=== PATIENT | male | born 1930 | race Caucasian/White ===

== ENCOUNTER 2016-10-24 20:46 | Inpatient (IN) | payer MEDICARE ==
--- NOTE | 2016-10-24 21:29 | ED ---
Josefina Cameron Rebecca, scribed for Jerry Shen MD on 10/24/16 at 2124 . Shortness of Breath - HPI Summary HPI Summary: Pt is an 85 y/o M BIBA who presents to ED c/o SOB. SOB began gradually 10 days ago and is slightly worse today than it has been previously. SOB characterized as mild dyspnea at exertion. Sx aggravated by exertion, alleviated by nothing. Denies any CP. Reports he does not typically use O2 per Os at home. - History of Current Complaint Chief Complaint: EDShortnessOfBreath Time Seen by Provider: 10/24/16 20:56 Hx Obtained From: Patient Onset/Duration: Gradual Onset, Lasting Days - 10 days, Still Present Timing: Constant Dyspnea At: Exertion Aggrevating Factors: Movement Alleviating Factors: Nothing Associated Signs & Symptoms: Negative - Allergy/Home Medications Allergies/Adverse Reactions: Allergies Allergy/AdvReac Type Severity Reaction Status Date / Time No Known Allergies Allergy Verified 07/15/14 15:44 Home Medications: Home Medications Albuterol 0.5% CONC NEB.ABEL* 1 ml .SEE ORDER Q4HR PRN 10/24/16 [History Confirmed 10/24/16] Cholecalciferol [Vitamin D] 1,000 unit PO DAILY 10/24/16 [History Confirmed ] Diltiazem CD CAP* [Cardizem CD CAP*] 240 mg PO DAILY 10/24/16 [History Confirmed 10/24/16] Fluticasone-Salmeterol 100-50* [Advair Diskus 100-50*] 1 puff INH BID 10/24/16 [ History Confirmed 10/24/16] Psyllium KESHIA* [Metamucil KESHIA*] 1 pkt PO DAILY 10/24/16 [History Confirmed ] PMH/Surg Hx/FS Hx/Imm Hx Endocrine/Hematology History: Denies: Hx Diabetes Cardiovascular History: Reports: Hx Hypertension Denies: Hx Angina Respiratory History: Denies: Hx Asthma, Hx Chronic Obstructive Pulmonary Disease (COPD) Comment Only: Other Respiratory Problems/Disorders - pt states wheezes occasionally Sensory History: Reports: Hx Contacts or Glasses Opthamlomology History: Reports: Hx Contacts or Glasses Infectious Disease History: No Infectious Disease History: Denies: Traveled Outside the [place] in Last 30 Days - Family History Known Family History: Negative: Cardiac Disease, Hypertension, Diabetes - Social History Alcohol Use: Daily Alcohol Amount: 3 MIXED DRINKS PER DAY Substance Use Type: Reports: None Hx Tobacco Use: No Smoking Status (MU): Never Smoked Tobacco Review of Systems Negative: Chest Pain Positive: Shortness Of Breath - dyspnea at exertion All Other Systems Reviewed And Are Negative: Yes Physical Exam Triage Information Reviewed: Yes Vital Signs On Initial Exam: Initial Vitals Temp Pulse Resp BP Pulse Ox 98.4 F 82 20 130/65 100 10/24/16 20:56 10/24/16 20:56 10/24/16 20:56 10/24/16 20:56 10/24/16 20:56 Vital Signs Reviewed: Yes Appearance: Positive: Well-Appearing, No Pain Distress Skin: Positive: Warm, Pale Eyes: Positive: IRASEMA ENT: Positive: Hearing grossly normal Neck: Positive: Supple Respiratory/Lung Sounds: Positive: Clear to Auscultation, Breath Sounds Present Cardiovascular: Positive: RRR Abdomen Description: Positive: Nontender, Soft Bowel Sounds: Positive: Present Musculoskeletal: Positive: Strength/ROM Intact Neurological: Positive: Sensory/Motor Intact, Alert, Oriented to Person Place, Time, Normal Gait Psychiatric: Positive: Affect/Mood Appropriate - Vic[place] Coma Scale Coma Scale Total: 15 Diagnostics - Vital Signs Vital Signs Temp Pulse Resp BP Pulse Ox 10/24/16 20:56 98.4 F 82 20 130/65 100 - Laboratory Result Diagrams: 10/25/16 03:05 10/24/16 21:30 Lab Statement: Any lab studies that have been ordered have been reviewed, and results considered in the medical decision making process. - Radiology CXR Radiology Interpretation Completed By: Radiologist - Cardiomegaly. Left pleural effusion is noted. Likely small right pleural effusion is noted. - EKG 2203 Cardiac Rate: NL - 87 bpm EKG Rhythm: Atrial Fibrillation EKG Interpretation: RBBB Re-Evaluation - Re-Evaluation First Eval Comment: results d/w pt. pt with dark stools for 1 month Course/Dx - Course Assessment/Plan: Pt is an 85 y/o M BIBA with a CC of mild dyspnea at exertion for 10 days, aggravated by exertion. Denies any CP. Hgb 5.8. BNP 126. CXR reveals "Cardiomegaly. Left pleural effusion is noted. Likely small right pleural effusion is noted." EKG reveals A fib and RBBB. Discussed care of pt with Dr. Contreras to inform him of pt. - Diagnoses Provider Diagnoses: GI bleed - Physician Notifications Discussed Care of Patient With: Dr. Contreras, hopsitalist, who was informed of pt. Time Discussed With Above Provider: 22:00 Instructed by Provider To: Admit As Inpatient Discharge - Discharge Plan Condition: Guarded Disposition: ADMITTED TO [facility] The documentation as recorded by the Josefina powell Rebecca accurately reflects the service I personally performed and the decisions made by me, Jerry Shen MD.
[2016-10-24 21:49] LABS: Hematocrit 19 % (42-52); Mean Corpuscular HGB Conc 31 g/dl (31-36); Mean Corpuscular Hemoglobin 25 pg (27-31); Mean Corpuscular Volume 82 fL (80-94); Mean Platelet Volume 7 um3 (7.4-10.4); Red Cell Distribution Width 22 % (10.5-15); White Blood Count 8.1 10^3/ul (3.5-10.8)
[2016-10-24 21:51] LABS: Comments Flag Yes
[2016-10-24 21:52] LABS: Add Diff/Slide Review? Slide Review Added; Hemoglobin 5.8 g/dl (14.0-18.0)
[2016-10-24 21:59] LABS: Albumin 3.6 g/dL (3.2-5.2); BUN/Creatinine Ratio 14.5 (8-20); Calcium 8.8 mg/dL (8.6-10.3); EGFR African American 75.8 (>60); Globulin 2.5 g/dL (2-4); Potassium 3.9 mmol/L (3.5-5.0); Total Bilirubin 0.4 mg/dL (0.2-1.0); Total Protein 6.1 g/dL (6.4-8.9)
[2016-10-24 22:00] LABS: Troponin I 0.02 ng/mL (<0.04)
--- NOTE | 2016-10-24 22:07 | RAD ---
Indication: Shortness of breath. 2 views of the chest demonstrates no mediastinal shift. There is cardiomegaly. Left pleural effusion is noted. There is likely a small right pleural effusion. Interstitial edema is noted. IMPRESSION: Cardiomegaly. Left pleural effusion is noted. Likely small right pleural effusion is noted.
[2016-10-24 22:23] LABS: Hypochromasia 3+; Macrocytosis 1+; Microcytosis 1+; Polychromasia 1+
[2016-10-24] MEDS: NS 0.9% 1000 ML* 1,000 ML IV SCH (23:25)
[2016-10-25] MEDS: Pantoprazole IV* 80 MG in NS 0.9% 250 ML* 250 ML IVPB SCH ×2 (01:47→12:27)
[2016-10-25] MEDS: NS 0.9% 1000 ML* 1,000 ML IV SCH ×2 (01:57→11:00)
[2016-10-25 02:55] LABS: Comments Flag Yes; Hematocrit 16 % (42-52)
[2016-10-25 02:56] LABS: Hemoglobin 4.9 g/dl (14.0-18.0)
[2016-10-25 03:36] LABS: Comments Flag Yes; Hematocrit 19 % (42-52)
[2016-10-25 03:39] LABS: Hemoglobin 5.9 g/dl (14.0-18.0)
--- NOTE | 2016-10-25 08:45 | HP ---
DATE OF ADMISSION: 10/24/16 CHIEF COMPLAINT: Shortness of breath. HISTORY OF PRESENT ILLNESS: The patient is an 85-year-old gentleman who stated about 10 days ago he started feeling increased shortness of breath. He is not worse when he sits or lies down, but it happens with almost minimal exertion. He has no chest pain. His stools have been darker and may have been black. He has not had any recent use of Advil or Motrin. He has had no nausea, vomiting and no abdominal pain. He went to a restaurant [employer] and his friend became concerned, and called EMT. When he got to the ER, he was found to have hemoglobin of 5.8. PAST MEDICAL HISTORY: He has a past medical history significant for atrial fibrillation, diverticulitis, hip fracture, sleep apnea. ALLERGIES: He has no known drug allergies. CURRENT MEDICATIONS: 1. Metamucil one pack daily. 2. Phosphatidylserine 300 mg daily 3. Furosemide 20 mg p.o. 2 to 3 times a week. 4. Advair Diskus 100/50 one puff twice daily 5. Diltiazem CD 240 mg daily. 6. Pradaxa 150 mg twice daily. 7. Cholecalciferol 1000 units daily. 8. Albuterol 1 cc every 4 hours as needed. FAMILY HISTORY: Reviewed and noncontributory. SOCIAL HISTORY: No tobacco, occasional alcohol. No recreational drug use. 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 His friend, Sam Israel, , is his healthcare proxy. REVIEW OF SYSTEMS: A 14-point review of systems was completed with the patient. All pertinent positives and negatives are in the history of present illness, otherwise negative. PHYSICAL EXAMINATION GENERAL: A pleasant gentleman lying in bed, in no acute distress. VITAL SIGNS: Temperature 98.8 degrees, heart rate 96 beats per minute, respiratory rate 21 breaths per minute, pulse ox 96%, blood pressure 126/67. HEENT: Normocephalic, atraumatic. Pupils are equal, round and reactive to light. Moist mucous membranes. NECK: Supple. No JVD, bruits, palpable thyroid, or lymphadenopathy. CHEST: Clear to auscultation and percussion bilaterally. CARDIOVASCULAR: S1, S2 appreciated. ABDOMEN: Positive bowel sounds in all 4 quadrants. Soft, nontender, and nondistended. EXTREMITIES: No cyanosis, clubbing, or edema. +2 peripheral pulses bilaterally. NEURO: Alert and oriented x3. Moves all extremities. SKIN: No rashes or abnormalities. LAB DATA: White count 8.1, hemoglobin 5.8, hematocrit 19, platelets 312, MCV 82. Sodium 134, potassium 3.9, chloride 104, CO2 24, BUN 17, creatinine 1.7, glucose 101, lactic acid 2.1. Chest x-ray shows cardiomegaly, left pleural fusion is noted, likely small right pleural fusion. EKG shows AFib with a moderate ventricular response, no acute ST-T wave changes. ASSESSMENT AND PLAN: 1. Shortness of breath. I believe this is likely related to his anemia. His MCV is not too low, but I suspect he might have had a bleed over the last couple of weeks. I will transfuse him 2 units of packed red blood cells. Recheck H\T\H every 6 hours. We will ask GI to see him in the morning for scope. 2. Atrial fibrillation. We will need to hold Pradaxa. Rate is adequately controlled at this time. 3. FEN. NPO, awaiting likely scope. 4. DVT prophylaxis. Sequential compression stockings. 5. The patient is a full code. TIME SPENT: Over 75 minutes were spent on this H and P, more than 40 minutes of which were spent in direct [id number] contact with the patient in evaluation, physical exam, counseling, and coordination of care. CC: Dr. Josette Brunner* [id number]/CPS #: [id number] MTDD
[2016-10-25 09:13] LABS: Hematocrit 23 % (42-52); Hemoglobin 7.2 g/dl (14.0-18.0)
[2016-10-25] MEDS ORDERED: Pantoprazole IV* 40 MG ONE (12:21)
[2016-10-25] MEDS ORDERED: Midazolam* 1 MG/ML 10 ML VIAL (10 MG) ONE (13:37)
[2016-10-25] MEDS ORDERED: fentaNYL* 50 MCG/ML 2 ML VIAL (100 MCG VIAL) ONE (13:37)
[2016-10-25 16:01] LABS: Hematocrit 22 % (42-52); Hemoglobin 6.8 g/dl (14.0-18.0)
[2016-10-25 16:02] LABS: Comments Flag Yes
--- NOTE | 2016-10-25 18:36 | PN ---
Subjective Date of Service: 10/25/16 Interval History: Pt seen and examined with 2 friends present after EGD Hungry and just finished meal Has no abdominal pain No longer feels LH, no CP, SOB. Has not been up to walk Objective Active Medications: Mometasone Furoate/Formoterol Fumar (Dulera 100/5 Mdi*) 2 puff INH BID BRIAN Omeprazole (Prilosec Cap*) 20 mg PO BID BRIAN Vital Signs 10/24/16 10/24/16 10/24/16 23:06 23:30 23:38 Temperature 98.8 F Pulse Rate 85 96 Respiratory 22 22 Rate Blood Pressure 130/65 126/67 (mmHg) O2 Sat by Pulse 97 95 Oximetry 10/24/16 10/25/16 10/25/16 23:45 00:00 00:01 Temperature Pulse Rate 90 85 95 Respiratory 21 23 22 Rate Blood Pressure 130/66 130/81 (mmHg) O2 Sat by Pulse 96 96 96 Oximetry 10/25/16 10/25/16 10/25/16 00:08 00:15 01:20 Temperature 98.4 F 98.1 F Pulse Rate 95 111 99 Respiratory 22 18 20 Rate Blood Pressure 121/56 133/86 (mmHg) O2 Sat by Pulse 95 100 Oximetry 10/25/16 10/25/16 10/25/16 02:43 03:13 03:57 Temperature 98.5 F 98.4 F Pulse Rate 106 74 Respiratory 18 16 20 Rate Blood Pressure 122/68 109/65 (mmHg) O2 Sat by Pulse 94 Oximetry 10/25/16 10/25/16 10/25/16 04:12 07:15 08:00 Temperature 98.2 F 98.2 F Pulse Rate 84 101 Respiratory 21 20 16 Rate Blood Pressure 119/59 126/68 (mmHg) O2 Sat by Pulse 96 Oximetry 10/25/16 10/25/16 11:10 15:34 Temperature 98.5 F 98.1 F Pulse Rate 85 97 Respiratory 20 20 Rate Blood Pressure 121/71 127/70 (mmHg) O2 Sat by Pulse 97 96 Oximetry Oxygen Devices in Use Now: None Appearance: NAD, younger than stated age Eyes: No Scleral Icterus, PERRLA Ears/Nose/Mouth/Throat: Clear Oropharnyx, Mucous Membranes Moist Neck: NL Appearance and Movements; NL JVP, Trachea Midline Respiratory: Symmetrical Chest Expansion and Respiratory Effort, Clear to Auscultation Cardiovascular: - - IRIR Abdominal: NL Sounds; No Tenderness; No Distention, No Hepatosplenomegaly Lymphatic: No Cervical Adenopathy Extremities: - - trace-1+ edema Skin: No Rash or Ulcers Neurological: Alert and Oriented x 3 Result Diagrams: 10/25/16 15:56 10/24/16 21:30 Assess/Plan/Problems-Billing Assessment: 85 yo M p/w increasing SOB found with anemia s/p EGD 10/25 found with esophageal erosions. - Patient Problems (1) Acute blood loss anemia Comment: s/p 2 units PRBC, 3rd this evening for Hb <7 Suspected in setting of esophageal erosion on pradaxa holding pradaxa repeat H/H 1 hr after transfusion and again in AM (2) Afib Comment: Holding pradaxa discussed risk benefit with pt and he is in agreement with not restarting AC at this time (3) Esophageal erosions Comment: Concern for pill esophagitis. Pt does report dry mouth and difficulty swallowing tabs (vs caps) although does not have medications he is currently taking in tab form Start omeprazole (4) Sleep apnea Comment: CPAP (5) DVT prophylaxis Comment: SCDs in setting of GIB
[2016-10-25] MEDS: Mometasone/Formoter 100/5 MDI INH SCH (21:15)
[2016-10-25] MEDS: Omeprazole CAP* 20 MG PO SCH (21:32)
[2016-10-25] MEDS ORDERED: Pantoprazole IV* 80 MG in NS 0.9% 250 ML* 250 ML IVPB SCH (22:00)
[2016-10-25 23:59] LABS: Hematocrit 26 % (42-52); Hemoglobin 8.2 g/dl (14.0-18.0)
--- NOTE | 2016-10-26 04:38 | PRO ---
PROCEDURE NOTE: DATE OF PROCEDURE: 10/25/16 PROCEDURE PERFORMED: Upper endoscopy. MEDICINE: Versed 4 mg IV. NARRATIVE: This is an 85-year-old gentleman presenting with anemia and the report of having black stools for about a week to two. The patient does have a history of atrial fibrillation, on Pradaxa and was starting to feel short of breath the last few days. He also mentions that his stools have been black. For that reason, he was seen in the emergency room where he was noted to be anemic with a hemoglobin of about 5. He was transfused and is feeling better. For this reason, upper endoscopy is being carried out. DESCRIPTION OF PROCEDURE: After the procedure was discussed with the patient, risks and benefits were outlined, written consent was obtained. The patient was placed in the left lateral decubitus position and conscious sedation was administered. A video diagnostic gastroscope was inserted orally and advanced very carefully into the esophagus. The esophagus, stomach, and duodenum to the second to third portion were well visualized. The patient tolerated the procedure well. There were no immediate complications. FINDINGS: The proximal esophagus was normal. However, the mid esophagus had some scattered erosions that were relatively deep, but not bleeding. The more distal aspect of the esophagus was normal without any further erosions or any other lesion. The stomach was entered. There was bile in the stomach, but certainly no blood. The gastric mucosa was normal. There was no ulceration or inflammatory change. The pylorus was normal and patent. The duodenal bulb was normal and the second to third portion of the duodenum was normal with a normal folding pattern. CONCLUSION: Erosions identified in the mid esophagus which may have accounted for the patient's bleeding and otherwise normal upper endoscopy. RECOMMENDATIONS: The location of these erosions makes one wonder about a previous episode of pill esophagitis as it seems that this is right above the pb, a common place where pills could get caught. In any event, I think it is healing and given his improvement in his H and H and no further bleeding, he could probably be observed. If Pradaxa is necessary, that can probably be started in the next couple of days. I will certainly keep him on a proton pump inhibitor for at least a month or two. [id number]/[facility] #: [id number] [facility] SHOREChristiane
[2016-10-26] MEDS: Omeprazole CAP* 20 MG PO SCH (09:00)
[2016-10-26] MEDS: Mometasone/Formoter 100/5 MDI INH SCH (13:19)
[2016-10-26 13:33] VITALS: BP 146/76
[2016-10-26 14:59] LABS: Hematocrit 26 % (42-52); Hemoglobin 8.2 g/dl (14.0-18.0); Mean Corpuscular HGB Conc 32 g/dl (31-36); Mean Corpuscular Hemoglobin 26 pg (27-31); Mean Corpuscular Volume 83 fL (80-94); Mean Platelet Volume 7 um3 (7.4-10.4); Red Blood Count 3.13 10^6/ul (4.0-5.4); Red Cell Distribution Width 19 % (10.5-15); White Blood Count 10.2 10^3/ul (3.5-10.8)
--- NOTE | 2016-10-27 02:37 | DS ---
DISCHARGE SUMMARY: DATE OF ADMISSION: 10/24/16 DATE OF DISCHARGE: 10/26/16 PRIMARY CARE PROVIDER: Laurel Angulo. PRIMARY DIAGNOSIS: Gastrointestinal hemorrhage in the setting of esophageal erosions. SECONDARY DIAGNOSES: Include: 1. Atrial fibrillation, on Pradaxa. 2. Sleep apnea. MEDICATIONS ON DISCHARGE: Include: 1. Metamucil 1 packet daily. 2. Phosphatidylserine 300 mg daily 3. Lasix 20 mg 2 to 3 times weekly. 4. Advair 100/50 mcg 1 puff twice daily. 5. Diltiazem CD 250 mg daily. 6. Vitamin D 1000 units daily. 7. Albuterol nebulizer 4 times a day as needed for shortness of breath. 8. Prilosec 20 mg twice daily. 9. Ferrous sulfate liquid 220 mg daily. PERTINENT LABORATORY DATA: Hemoglobin on presentation 4.9, on discharge 8.2 after receiving of 3 units packed red blood cells. PROCEDURES PERFORMED DURING HOSPITAL STAY: Upper endoscopy performed by Dr. Briscoe on 10/25/16, conclusion: Erosions identified in the mid esophagus, may have accounted for the patient's bleeding and otherwise normal upper endoscopy. HISTORY OF PRESENT ILLNESS AND HOSPITAL COURSE: This is an 85-year-old well functioning man who has been in usual state of health until prior to admission about 10 days, started to having increasing shortness of breath. He was directed to the emergency room by one of his friends. Additionally, he had noticed that his stools had been darker brown and possibly black prior to presentation. His hemoglobin on presentation was notably 4.9 as indicated above likely accounting for the patient's symptoms including shortness of breath. He received 2 units of packed red blood cells with adequate response to hemoglobin of 7.2. He had endoscopy with resulted as indicated above notable for mid esophagus esophageal erosions, this was concerning for pill esophagitis. In discussion with the patient, he does acknowledge that swallowing tab is difficult for him; however, does not have any medications in tablet form. He was directed to crush any tablets that he should receive in the future. Additionally, omeprazole 20 mg twice daily was added to the patient 's medication list in addition to iron in order to supplement his return to normal hematocrit. There are no complications during the patient's hospital stay. He will be restarted on all of his home medications except for Pradaxa. The risks and benefits withholding Pradaxa were discussed with the patient. We agreed that holding for at least several weeks would be in his best interest in the setting of recent GI hemorrhage and known esophageal erosions. At followup, please; 1. Evaluate for resumption of Pradaxa. 2. Recommend following hemoglobin and hematocrit closely, possibly every 6 weeks to monitor for slow development of anemia. If the patient has recurrent anemia, he may benefit from colonoscopy. 3. No other specific labs or vitals that need followup. Reasons to return to the hospital including but not limited to recurrent or worsening symptoms, including shortness of breath, chest pain, lightheadedness, loss of consciousness or near loss of consciousness, or dark black stools or bleeding from any source were discussed with the patient. He acknowledged understanding. TIME SPENT: Greater than 45 minutes was spent on discharge of this patient with greater than half the time spent [id number] with the patient. CC: Dr. Scarlet Chopra* [id number]/CPS #: [id number] FRANCOISE
== END 2016-10-26 17:15 | disposition home or self-care (01) | DRG 381 ==
LOC: ED 20:46 → MEDTELE 22:42 → UNDOADMIN 23:10 → MEDTELE 23:10 → MED 10-25 19:20
PROVIDERS: ADMIT Internal Medicine; ATTEND Internal Medicine
PROC: 30233N1 Transfusion of Nonautologous Red Blood Cells into Peripheral Vein, Percutaneous Approach (ICD-10-PCS; principal; 2016-10-25)
PROC: 0DJ08ZZ Inspection of Upper Intestinal Tract, Via Natural or Artificial Opening Endoscopic (ICD-10-PCS; 2016-10-25)
DX: K22.11 Ulcer of esophagus with bleeding (principal); D62 Acute posthemorrhagic anemia; I48.91 Unspecified atrial fibrillation; G47.30 Sleep apnea, unspecified; I10 Essential (primary) hypertension; Z72.89 Other problems related to lifestyle
CPT/HCPCS: 36415; 71020; 80053; 82272; 83605; 83880; 84484; 85014; 85018; 85025; 85027; 86850; 86900; 86901; 86922; 93005; 94660; 94760; A9270-GY; J2250; J3010; P9040

== ENCOUNTER 2018-04-23 20:55 | Emergency (ER) | payer MEDICARE ==
--- OUTSIDE RECORDS SUMMARY | 2018-04-23 21:09 | XMS REPORT | Continuity of Care Document ---
:1930 Author Organization [facility] Care Team Providers Name Role Phone MUNIRA COFFEY Primary Care Physician Allergies and Intolerances No Known Allergies Medications RxNorm Medication Dose Route Instructions Start End Date Status Date 2418 Cholecalciferol 2000 unit oral orally every day Active 1314666 dabigatran etexilate 150 mg oral orally 2 times per Active 150 MG Oral Capsule day (administer at approximately same time(s) each day) Diltiazem Oral 24 hr 240 mg oral orally every day Active Cap Doxycycline Hyclate 100 mg oral orally 2 times per Active Oral day (5 days) 992173 Furosemide 20 MG 20 mg oral orally every day Active Oral Tablet 360166 Levofloxacin 500 MG 500 mg oral orally every day Active Oral Tablet (5 days) 884760 Memantine 5 mg oral orally 2 times per Active hydrochloride 5 MG day Oral Tablet 7646 Omeprazole 20 mg oral orally every day Active Problems Code Code System Problem Name Start Date End Date Status 57758152 SNOMED-CT Pneumothorax Active Procedures No data in the system Results No data in the system Social History Code Code System Social History Description Dates Observed Observation 036165280 SNOMED CT Current Smoking Unknown if ever Status smoked UNK AdministrativeGender Sex Assigned At Unknown Vital Signs No data in the system Goals Section No data in the system Health Concerns No data in the systemEncounter Diagnosis Date Code Code System Diagnosis Status R04.2 ICD10 HEMOPTYSIS Active Advance Directives PT STATES NO ADVANCE DIRECTIVES Directive Type Effective Date 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 Supporting Document Name Address Phone No Directive Type 01/25/2018 8:31:00 Not Specified Not Specified Not Specified None No specified PM *RHIO - CONSENT IS YES Directive Type Effective Date 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 Supporting Document Name Address Phone No Directive Type 09/29/2011 Not Specified Not Specified Not Specified None No specified 10:01:04 PM Family History No data in the system Functional Status No data in the system Immunizations No data in the system Medical Equipment No data in the system Mental Status No data in the system Assessment and Plan Assessments No data in the systemPlan Of Treatment No data in the systemPending Tests No data in the system Hospital Discharge Instructions No data in the system Reason for Visit No data in the system
--- OUTSIDE RECORDS SUMMARY | 2018-04-23 21:09 | XMS REPORT | Continuity of Care Document ---
:1930 Author Organization [facility] Care Team Providers Name Role Phone MUNIRA COFFEY Primary Care Physician Allergies and Intolerances No Known Allergies Medications RxNorm Medication Dose Route Instructions Start End Date Status Date 2418 Cholecalciferol 2000 unit oral orally every day Active 4218170 dabigatran etexilate 150 mg oral orally 2 times per Active 150 MG Oral Capsule day (administer at approximately same time(s) each day) Diltiazem Oral 24 hr 240 mg oral orally every day Active Cap Doxycycline Hyclate 100 mg oral orally 2 times per Active Oral day (5 days) 913351 Furosemide 20 MG 20 mg oral orally every day Active Oral Tablet 809184 Levofloxacin 500 MG 500 mg oral orally every day Active Oral Tablet (5 days) 250153 Memantine 5 mg oral orally 2 times per Active hydrochloride 5 MG day Oral Tablet 7646 Omeprazole 20 mg oral orally every day Active Problems Code Code System Problem Name Start Date End Date Status 64184216 SNOMED-CT Pneumothorax Active Procedures No data in the system Results No data in the system Social History Code Code System Social History Description Dates Observed Observation 260215356 SNOMED CT Current Smoking Unknown if ever Status smoked UNK AdministrativeGender Sex Assigned At Unknown Vital Signs No data in the system Goals Section No data in the system Health Concerns No data in the systemEncounter Diagnosis Date Code Code System Diagnosis Status R04.2 ICD10 HEMOPTYSIS Active Advance Directives PT STATES NO ADVANCE DIRECTIVES Directive Type Effective Date 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
--- OUTSIDE RECORDS SUMMARY | 2018-04-23 21:09 | XMS REPORT | Continuity of Care Document ---
:1930 Author Organization [facility] Care Team Providers Name Role Phone MUNIRA COFFEY Primary Care Physician Allergies and Intolerances No Known Allergies Medications RxNorm Medication Dose Route Instructions Start End Date Status Date 2418 Cholecalciferol 2000 unit oral orally every day Active 1165097 dabigatran etexilate 150 mg oral orally 2 times per Active 150 MG Oral Capsule day (administer at approximately same time(s) each day) Diltiazem Oral 24 hr 240 mg oral orally every day Active Cap Doxycycline Hyclate 100 mg oral orally 2 times per Active Oral day (5 days) 053798 Furosemide 20 MG 20 mg oral orally every day Active Oral Tablet 174578 Levofloxacin 500 MG 500 mg oral orally every day Active Oral Tablet (5 days) 075817 Memantine 5 mg oral orally 2 times per Active hydrochloride 5 MG day Oral Tablet 7646 Omeprazole 20 mg oral orally every day Active Problems Code Code System Problem Name Start Date End Date Status 50381323 SNOMED-CT Pneumothorax Active Procedures No data in the system Results No data in the system Social History Code Code System Social History Description Dates Observed Observation 228157635 SNOMED CT Current Smoking Unknown if ever Status smoked UNK AdministrativeGender Sex Assigned At Unknown Vital Signs No data in the system Goals Section No data in the system Health Concerns No data in the systemEncounter Diagnosis Date Code Code System Diagnosis Status R04.2 ICD10 HEMOPTYSIS Active Advance Directives PT STATES NO ADVANCE DIRECTIVES Directive Type Effective Date Student Teacher Notes Supporting Document Name Address Phone No Directive Type 01/25/2018 8:31:00 Not Specified Not Specified Not Specified None No specified PM *RHIO - CONSENT IS YES Directive Type Effective Date Student Teacher Notes Supporting Document Name Address Phone No [...]
--- OUTSIDE RECORDS SUMMARY | 2018-04-23 21:09 | XMS REPORT | Continuity of Care Document ---
:1930 Author Organization [facility] Care Team Providers Name Role Phone MUNIRA COFFEY Primary Care Physician Allergies and Intolerances No Known Allergies Medications RxNorm Medication Dose Route Instructions Start End Date Status Date 2418 Cholecalciferol 2000 unit oral orally every day Active 2408352 dabigatran etexilate 150 mg oral orally 2 times per Active 150 MG Oral Capsule day (administer at approximately same time(s) each day) Diltiazem Oral 24 hr 240 mg oral orally every day Active Cap Doxycycline Hyclate 100 mg oral orally 2 times per Active Oral day (5 days) 527332 Furosemide 20 MG 20 mg oral orally every day Active Oral Tablet 142888 Levofloxacin 500 MG 500 mg oral orally every day Active Oral Tablet (5 days) 943154 Memantine 5 mg oral orally 2 times per Active hydrochloride 5 MG day Oral Tablet 7646 Omeprazole 20 mg oral orally every day Active Problems Code Code System Problem Name Start Date End Date Status [id number] SNOMED-CT Pneumothorax Active Procedures No data in the system Results No data in the system Social History Code Code System Social History Description Dates Observed Observation 419662902 SNOM[address] Current Smoking Unknown if ever Status smoked UNK AdministrativeGender Sex Assigned At Unknown Vital Signs No data in the system Goals Section No data in the system Health Concerns No data in the systemEncounter Diagnosis Date Code Code System Diagnosis Status R07.89 ICD10 OTHER CHEST PAIN Active Advance Directives PT STATES NO ADVANCE DIRECTIVES Directive Type Effective Date 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
--- OUTSIDE RECORDS SUMMARY | 2018-04-23 21:09 | XMS REPORT | Continuity of Care Document ---
:1930 Author Organization [facility] Care Team Providers Name Role Phone MUNIRA COFFEY Primary Care Physician Allergies and Intolerances No Known Allergies Medications RxNorm Medication Dose Route Instructions Start End Date Status Date 2418 Cholecalciferol 2000 unit oral orally every day Active 2352933 dabigatran etexilate 150 mg oral orally 2 times per Active 150 MG Oral Capsule day (administer at approximately same time(s) each day) Diltiazem Oral 24 hr 240 mg oral orally every day Active Cap Doxycycline Hyclate 100 mg oral orally 2 times per Active Oral day (5 days) 575767 Furosemide 20 MG 20 mg oral orally every day Active Oral Tablet 655847 Levofloxacin 500 MG 500 mg oral orally every day Active Oral Tablet (5 days) 932476 Memantine 5 mg oral orally 2 times per Active hydrochloride 5 MG day Oral Tablet 7646 Omeprazole 20 mg oral orally every day Active Problems Code Code System Problem Name Start Date End Date Status 41508485 SNOMED-CT Pneumothorax Active Procedures No data in the system Results No data in the system Social History Code Code System Social History Description Dates Observed Observation [id number] SNOMED CT Current Smoking Unknown if ever Status smoked UNK AdministrativeGender Sex Assigned At Unknown Vital Signs No data in the system Goals Section No data in the system Health Concerns No data in the systemEncounter Diagnosis Date Code Code System Diagnosis Status R04.2 ICD10 HEMOPTYSIS Active Advance Directives PT STATES NO ADVANCE DIRECTIVES Directive Type Effective Date 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
--- OUTSIDE RECORDS SUMMARY | 2018-04-23 21:09 | XMS REPORT ---
:1930 External Reference #:[id number] Author Organization [facility] Address [address] [address] Phone [phone] Care Team Providers Name Role Phone Josette Gerardo MD Care Team Information Assistant Laboratory Director Unavailable Payers Type Date Identification Numbers Payment Provider Subscriber Medicare Primary Policy Number: [id number] Medicare Tomas Calloway PayID: [id number] [facility] [address] [place] [address] Problems Date Description Provider Status Onset: 06/27/2005 Benign essential hypertension Josette Gerardo MD Active Onset: 10/13/2010 Atrial fibrillation Dony Charles MD Active Onset: 10/13/2010 Benign prostatic hypertrophy without Dony Charles MD Active outflow obstruction Onset: 10/13/2010 Right bundle branch block Dony Charles MD Active Onset: 10/13/2010 Degenerative joint disease of hand Dony Charles MD Active Onset: 05/25/2014 Raised prostate specific antigen Scarlet Chopra MD Active Onset: 05/26/2014 Diverticular disease Scarlet Chopra MD Active Onset: 05/26/2014 Mild memory disturbance Scarlet Chopra MD Active Onset: 11/10/2014 Vitamin B12 deficiency (non anemic) Scarlet Chopra MD Active Onset: 05/26/2015 Asthma cSarlet Chopra MD Active Onset: 05/26/2015 Obstructive sleep apnea syndrome Scarlet Chopra MD Active Onset: 05/30/2015 Vitamin D deficiency Scarlet Chopra MD Active Onset: 09/03/2015 Obstruction of lacrimal canaliculus Scarlet Chopra MD Active Onset: 08/19/2015 Essential hypertension Scarlet Chopra MD Active Onset: 08/19/2015 Chronic atrial fibrillation Scarlet Chopra MD Active Onset: 06/05/2016 Actinic keratosis BiterIan PA Active Family History Date Family Member(s) Problem(s) Comments : (1941) Father due to Unknown After travelling to [place]. (age 45 Years) Causes Prolonged hospitalization (?pneumonia) : (age Mother due to 75 Years) Alzheimer's Disease Siblings Siblings: 1 sister. 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 Hand Dominance RIGHT-handed Cigarette Use Never Smoked Cigarettes ETOH Use Occasionally consumes alcohol scotch socially Smoking Patient has never smoked Exercise Type/Frequency Does not exercise currently Allergies, Adverse Reactions, Alerts Date Description Reaction Status Severity Comments 06/27/2005 NKDA active Medications Medication Date Status Form Strength Qnty SIG Indications Ordering Provider Trelegy 03/11/ Active Aerosol 100-62.5- 60uni 1 puff daily J44.9 Macachris, Ellipta 2017 25mcg/Inh ts Josette Sher MD Vitamin B-12 02/05/ Active Tablets 1000mcg 90tab 1 by mouth Akin, 2017 s every day Josette Sher MD Memantine HCL 05/31/ Active Tablets 5mg 60tab 2 by mouth R41.3 Akin, 2016 s every day Josette Sher MD Pradaxa 05/28/ Active Capsules 150mg 180ca take 1 I48.2 Akin2016 ps capsule by Josette mouth twice MD Kristyn a day Omeprazole 02/28/ Active Capsules DR 20mg 90cap 1 by mouth K21.9 Akin, 2016 s every day Josette Sher MD Fluticasone 09/07/ Active Suspension 50mcg/Act 16uni two sprays J45.20 Akin Propionate 2016 ts in each Josette nostril MD Kristyn every day Diltiazem CD 05/30/ Active Caps ER 24HR 240mg 90cap 1 qday I48.2 Nav, 2014 s Scarlet Jordan MD Ra Vitamin 05/27/ Active Capsules 2000Unit 90cap 1 everyday E55.9 Akin D-3 2014 s as Josetteher ruma Sher MD after the high dose treatment Donepezil HCL 05/26/ Active Tablets 10mg 90tab 1 tab by R41.3 Akin, 2014 s mouth Josette everyday MD Kristyn Proair HFA 11/09/ Active Aerosol 108(90Bas 1Can 2 p four J44.9 Akin, 2014 e) times a day Josette mcg/Act as needed MD Kristyn J45.909 J45.20 Furosemide 08/11/2014 Active Tablets 20mg 180tabs 1/2 tab I10 Akin, alternating with Josette Sher MD 1 tab everyday I48.2 Glucosamine-Chondroitin 10/23/2008 Active Capsules 500-400 1 po M18.9 Trabout, tid MD Dony Tylenol Arthritis Pain 10/23/2008 Active Tablets ER 650mg 2 po M18.9 Trabout, tid prn MD Dony Azithromycin 08/03/2017 Hx Tablets 250mg 6 2 tabs R05 Akin, - t day one Josette 01/17/2018 a and 1 MD Kristyn b tab s daily till gone Zostavax 05/31/2017 Hx Suspension [id number] 1 1 Z00.01 Akin, - Rec /0.65ML u inject Josette 01/17/2018 n faith Sher MD i t s Omeprazole 02/28/[address] 20mg 9 1 by Akin, - 0 mouth Josette 02/28/2017 c every MD Kristyn a day p s Ferrous Sulfate 10/30/2016 Hx Elixir 220(44Fe 4 take [place], - ) mg/5ML 7 one Katina C, 02/04/2018 3 teaspoo RN MS [employer] u nful by n mouth a i day t s Prilosec OTC 10/30/[address] 20mg 6 1 by Akin, - 0 mouth Josette 02/28/2017 t twice MD Kristyn a daily b s Nebulizer 09/07/2016 Hx Kit 1 includi J45.20 Akin, Kit/Tubing/Mouthpiece - u ng Josette 08/03/2017 n henry Sher MD i er. for t use s with nebuliz ed albuter ol. for chronic mild asthma with exacerb ation. (j45.21 ) Cephalexin 11/01/2015 Hx Capsules 500mg 2 1 tab L03.11 Akin, - 0 by 5 Josette 2015 c keith Sher MD a twice a p day s Albuterol Sulfate 05/30/2015 Hx Nebulizer (2.5mg/3 7 inhale J45.90 Macadam, - ML) 5 via neb 9 Josette 05/31/2017 0.083% kristyn Sher MD l times a day as needed sob/whe ezing J44.9 Advair HFA 05/30/2015 - Hx Aerosol 115-21mcg/Act 16gm 1 puff bid J45.909 Scarlet Chopra 04/04/2017 MD Nikki J44.9 Vitamin D 05/27/2015 - Hx Capsules [id number] 8caps take 1 Nav (Ergocalciferol) 09/03/2015 capsule by Scarlet mouth every MD Nikki week x 8 weeks then change to low dose 2000 units everyday as maintenance Nexium 11/10/2014 - Hx Capsules DR 40mg 90caps 1 by mouth Nav 05/30/2015 every day - Scarlet free samples MD Nikki Vitamin B-12 ER 11/10/2014 - Hx Tablets ER 1000mcg 1 qday D5 Nav, 10/30/2016 1. Scarlet 9 MD Nikki Metoprolol 07/14/2014 - Hx Tablets ER 50mg 1 bid I4 Nav, Succinate ER 05/30/2015 24HR increased 8. Scarlet dose 0 MD Nikki I10 Losartan Potassium 06/22/2014 - Hx Tablets 100mg 90tabs 1/2 to 1 by Nav 07/14/2014 mouth every day Scarlet for target bp < MD Nikki 140/90 Phosphatidylserine 05/25/2014 - Hx Capsules 100mg 3 caps R41 Nav 05/31/2017 occasionally .1 Scarlet Jordan MD R41.3 Amoxicillin 10/24/2013 - Hx Tablets 875mg 20tabs 1 po bid 786.2 [place], 10/28/2013 Katina Mcgrath RN MS [employer] Furosemide 04/15/2012 - Hx Tablets 40mg 30tabs take 1 Scarlet Chopra 08/11/2014 tablet by MD Nikki mouth every other day as needed for edema Diovan 04/15/2012 - Hx Tablets 160mg 180tabs take 1 401.1 Emile, 11/10/2014 tablet by keith Fletcher twice RN MS [employer] a day pt will leave for vacation, pls dispense 3 mo supply now Metoprolol 10/17/2010 - Hx Tablets ER 25mg 90tabs 1 twice a 427.31 Nav , Scarlet Succinate ER 07/14/2014 24HR day by MD Nikki mouth every day (increased dose) Pradaxa 09/12/2010 - Hx Capsules 150mg 180caps take 1 I48.0 Macadam, 10/30/2016 capsule by Josette mouth twice MD Kristyn a day I48.91 I48.2 Coumadin 07/20/2010 - Hx Tablets 2.5mg 60tabs 1 po qd 427.31 Trabout, 09/12/2010 MD Dony Cephalexin 05/30/2010 - Hx Tablets 500mg 30tabs 1 tid for 10 729.5 [place], 10/17/2010 days Katina Mcgrath RN MS [employer] Amoxicillin 11/08/2009 - Hx Tablets 875mg 20tabs 1 po bid 461.0 Macadam , 10/17/2010 Josette Sher MD Keflex 03/30/2008 - Hx Capsules 500mg 20caps 1 po qid x 5 680.3 Trabout , 04/24/2008 days MD Dony Amrix 11/29/2007 - Hx Caps ER 15mg Samples 1-2 po qd 724.2 Trabout, 04/24/2008 24HR MD Dony Aricept 06/07/2007 - Hx Tablets 10mg 30tabs 1 po qd 780.93 Trabout, 05/25/2014 MD Dony Zithromax 04/26/2007 - Hx Tablets 250mg 1tabs take as 462 Trabout, Z-Rasta 06/07/2007 directed MD Dony Aspirin 10/05/2006 - Hx Gelcaps 325mg 1/4 po qd Macadam, 05/30/2015 Josette Sher MD Celebrex 10/05/2006 - Hx Capsules 200mg Sample 1 PO qd prn 724.2 Macadam, 06/07/2007 Josette Sher MD Hydrocodone/Ap 10/05/2006 - Hx 5/500 40units 1-2 po qid prn 724.2 Macadam, ap 06/07/2007 Josette Sher MD Avelox 06/13/2006 - Hx Tablets 400mg 14tabs 1 po qd 562.11 [place], 07/06/2006 Katina Mcgrath RN MS [employer] Miralax 01/22/2006 - Hx Powder 255gm 1 capful with 564.00 Emile, 07/06/2006 8 0z of Katina Mcgrath beverage once RN MS YAMILET daily as needed to prevent constipation Avelox 01/17/2006 - Hx Tablets 400mg 4tabs 1 po qd 789.9 Emile, 07/06/2006 Katina Mcgrath RN MS [employer] Diovan 06/27/2005 - Hx Tablets 160mg 30tabs 1 po qd 401.1 Emile, 04/15/2012 Katina Mcgrath RN MS [employer] Tetracycline 06/12/2005 - Hx Capsules 60caps 1 po bid Trabout, HCL 01/17/2006 MD Dony Aspirin 06/12/2005 - Hx Tablets 81mg 1/4 po qd Trabout, 10/05/2006 MD Dony Temovate 06/12/2005 - Hx Cream 0.05% 30gm apply to Trabout, 07/06/2006 affected areas roque Napoles MD Medications Administered in Office Medication Date Status Form Strength Qnty SIG Indications Ordering Provider Albuterol Up Administered Injection Biter, To 2.5mg & 018 ALEXANDRA Sosa Ipatropium [place] Up To 0.5mg Non-Compd Torodol Administered Injection Macadam, Injection 15 007 Josette MG Dose MD Kristyn Torjuniorol Administered Injection Macadam, Injection 15 007 Josette MG Dose MD Kristyn Torodol Administered Injection Macadam, Injection 15 007 Josette MG Dose MD Kristyn Torjuniorol Administered Injection Macadam, Injection 15 007 Josette MG Dose MD Kristyn Immunizations CPT Code Status Date Vaccine Lot # [id number] Given 06/02/2017 Zoster (Zostavax) 29991 Given 05/31/2017 Influenza Vac, 3 Yrs & Older, Quadrivalent, [id number] Split, [place] Use 45664 Given 05/29/2016 Pneumococcal 23 Immunization Adult Or [id number] Immunosuppressed Patient 65992 Given 05/29/2016 Influenza Vac, 3 Yrs & Older, Quadrivalent, [id number] Split, [place] Use 64263 Given 05/26/2015 Influenza Vac, 3 Yrs & Older, Quadrivalent, [id number] Split, Im Use 57312 Given 05/26/2015 Prevnar 13 Pneumococal Conjugate Vaccine [id number] Q2038 Given 05/25/2014 Fluzone Trivalent Immunization [id number] 72204 Given 05/25/2014 Prevnar 13 Pneumococal Conjugate Vaccine [id number] Q2038 Given 06/02/2013 Fluzone Trivalent Immunization [id number] Q2038 Given 05/27/2012 Fluzone Trivalent Immunization [id number] Q2038 Given 07/03/2011 Fluzone Trivalent Immunization [id number] 34713 Given 06/01/2010 Afluria Or Fluvirin Flu Vac Intramuscular [id number] 97541 Given 09/20/2009 Immunization Td 7 Yrs Or Older [id number] 82888 Given 07/20/2009 Afluria Or Fluvirin Flu Vac Intramuscular [id number] 54046 Given 06/03/2007 Afluria Or Fluvirin Flu Vac Intramuscular 47392 Given 06/03/2007 Afluria Or Fluvirin Flu Vac Intramuscular [id number] 48302 Given 05/08/2005 Afluria Or Fluvirin Flu Vac Intramuscular [id number] 02347 Given 05/18/2004 Pneumococcal 23 Immunization Adult Or Immunosuppressed Patient 85206 Given 05/18/2004 Afluria Or Fluvirin Flu Vac Intramuscular 63999 Given 05/07/2003 Afluria Or Fluvirin Flu Vac Intramuscular 41605 Given 06/26/2002 Afluria Or Fluvirin Flu Vac Intramuscular Vital Signs Date Vital Result Comment 04/15/2018 Weight 214.50 lb Heart Rate 76 /min BP Systolic 117 mmHg BP Diastolic 65 mmHg Height 73.5 inches 6'1.50" BMI (Body Mass Index) 27.9 kg/m2 03/11/2018 Weight 207.25 lb Heart Rate 66 /min BP Systolic 104 mmHg BP Diastolic 65 mmHg Height 73.5 inches 6'1.50" BMI (Body Mass Index) 27.0 kg/m2 02/04/2018 Weight 209.25 lb Heart Rate 72 /min BP Systolic 111 mmHg BP Diastolic 72 mmHg Height 73.5 inches 6'1.50" BMI (Body Mass Index) 27.2 kg/m2 01/17/2018 Weight 211.00 lb Heart Rate 101 /min BP Systolic 113 mmHg BP Diastolic 63 mmHg Height 73.5 inches 6'1.50" BMI (Body Mass Index) 27.5 kg/m2 08/03/2017 Body Temperature 97.5 F Weight 215.00 lb Heart Rate 80 /min BP Systolic 116 mmHg BP Diastolic 64 mmHg Height 73.5 inches 6'1.50" BMI (Body Mass Index) 28.0 kg/m2 07/23/2017 Weight 214.12 lb Heart Rate 60 /min BP Systolic 113 mmHg BP Diastolic 70 mmHg Height 73.5 inches 6'1.50" BMI (Body Mass Index) 27.9 kg/m2 07/11/2017 Weight 216.25 lb Heart Rate 80 /min BP Systolic 132 mmHg BP Diastolic 84 mmHg Height 73.5 inches 6'1.50" BMI (Body Mass Index) 28.1 kg/m2 07/04/2017 Body Temperature 97.9 F Weight 216.00 lb Heart Rate 82 /min BP Systolic 127 mmHg BP Diastolic 76 mmHg Height 73.5 inches 6'1.50" BMI (Body Mass Index) 28.1 kg/m2 05/31/2017 Weight 216.12 lb Heart Rate 61 /min BP Systolic 127 mmHg BP Diastolic 80 mmHg Height 73.5 inches 6'1.50" BMI (Body Mass Index) 28.1 kg/m2 Urine Dipstick - Blood NEGATIVE Urine Dipstick - Protein NEGATIVE Urine Dipstick - Glucose NEGATIVE Urine Dipstick - Leukocytes NEGATIVE Right Visual Acuity Distance 20/30 Left Visual Acuity Distance 20/30 Both 20/30 10/30/2016 Weight 220.25 lb Heart Rate 110 /min BP Systolic 99 mmHg BP Diastolic 62 mmHg Height 73.5 inches 6'1.50" BMI (Body Mass Index) 28.7 kg/m2 09/07/2016 Body Temperature 99.0 F Weight 220.00 lb Heart Rate 83 /min BP Systolic 124 mmHg BP Diastolic 69 mmHg Height 73.5 inches 6'1.50" BMI (Body Mass Index) 28.6 kg/m2 05/29/2016 Weight 221.00 lb Heart Rate 74 /min BP Systolic 118 mmHg BP Diastolic 73 mmHg Height 73.5 inches 6'1.50" BMI (Body Mass Index) 28.8 kg/m2 Urine Dipstick - Blood NEGATIVE Urine Dipstick - Protein NEGATIVE Urine Dipstick - Glucose NEGATIVE Urine Dipstick - Leukocytes NEGATIVE Left ear audiology results 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 Right ear audiology results FAIL But Not With Him Right Visual Acuity Distance 20/30 Left Visual Acuity Distance 20/30 Both 20/30 Corrected 11/08/2015 Weight 223.50 lb Heart Rate 90 /min BP Systolic 120 mmHg BP Diastolic 76 mmHg Height 73.5 inches 6'1.50" BMI (Body Mass Index) 29.1 kg/m2 11/01/2015 Weight 223.12 lb Heart Rate 78 /min BP Systolic 122 mmHg BP Diastolic 75 mmHg 09/08/2015 Weight 228.50 lb Heart Rate 80 /min BP Systolic 142 mmHg BP Diastolic 75 mmHg 08/19/2015 Body Temperature 98.6 F Weight 233.19 lb Heart Rate 92 /min BP Systolic 130 mmHg BP Diastolic 80 mmHg Height 73.5 inches 6'1.50" O2 % BldC Oximetry 95 % O2 Saturation Level with Exercise 92 % BMI (Body Mass Index) 30.3 kg/m2 Urine Dipstick - Blood NEGATIVE Urine Dipstick - Protein NEGATIVE Urine Dipstick - Glucose NEGATIVE Urine Dipstick - Leukocytes NEGATIVE Right Visual Acuity Distance 20/30 Left Visual Acuity Distance 20/30 Both 25/25 05/26/2015 Weight 221.50 lb Heart Rate 81 /min BP Systolic 116 mmHg BP Diastolic 75 mmHg Height 73.5 inches 6'1.50" BMI (Body Mass Index) 28.8 kg/m2 Urine Dipstick - Blood NEGATIVE Urine Dipstick - Protein TRACE Urine Dipstick - Glucose NEGATIVE Urine Dipstick - Leukocytes 1+ Right Visual Acuity Distance 20/30 Left Visual Acuity Distance 20/30 Both 20/25 11/09/2014 Weight 217.00 lb Heart Rate 86 /min BP Systolic 134 mmHg BP Diastolic 91 mmHg Height 73.5 inches 6'1.50" BMI (Body Mass Index) 28.2 kg/m2 09/22/2014 Weight 213.00 lb Heart Rate 90 /min BP Systolic 111 mmHg BP Diastolic 73 mmHg Height 73.5 inches 6'1.50" O2 % BldC Oximetry 95 % O2 Saturation Level with Exercise 94 % BMI (Body Mass Index) 27.7 kg/m2 08/11/2014 BP Systolic Recheck 84 mmHg RIGHT arm BP Diastolic Recheck 60 mmHg RIGHT arm 08/11/2014 Weight 202.00 lb Heart Rate 69 /min BP Systolic 86 mmHg BP Diastolic 56 mmHg Height 74 inches 6'2" BMI (Body Mass Index) 25.9 kg/m2 06/03/2014 Weight 223.25 lb Heart Rate 94 /min BP Systolic 111 mmHg BP Diastolic 65 mmHg Height 74 inches 6'2" BMI (Body Mass Index) 28.7 kg/m2 05/25/2014 Weight 222.00 lb Heart Rate 77 /min BP Systolic 129 mmHg BP Diastolic 72 mmHg Height 74 inches 6'2" BMI (Body Mass Index) 28.5 kg/m2 Urine Dipstick - Blood NEGATIVE Urine Dipstick - Protein NEGATIVE Urine Dipstick - Glucose NEGATIVE 11/14/2013 Weight 219.50 lb Heart Rate 60 /min BP Systolic 115 mmHg BP Diastolic 57 mmHg 10/27/2013 Weight 224.00 lb Heart Rate 99 /min BP Systolic 136 mmHg BP Diastolic 80 mmHg 10/24/2013 Body Temperature 100.0 F Weight 223.25 lb Heart Rate 96 /min BP Systolic 136 mmHg BP Diastolic 70 mmHg O2 Saturation Level with Exercise 93 % 09/15/2013 Weight 222.00 lb Heart Rate 109 /min BP Systolic 149 mmHg BP Diastolic 78 mmHg 06/02/2013 Weight 225.00 lb Heart Rate 50 /min BP Systolic 126 mmHg BP Diastolic 72 mmHg 12/23/2012 Body Temperature 98.3 F Weight 221.00 lb Heart Rate 52 /min BP Systolic 120 mmHg BP Diastolic 75 mmHg 09/09/2012 Weight 220.00 lb Heart Rate 91 /min BP Systolic 115 mmHg BP Diastolic 68 mmHg 05/27/2012 Weight 220.00 lb Heart Rate 77 /min BP Systolic 103 mmHg BP Diastolic 65 mmHg 04/15/2012 Weight 226.00 lb Heart Rate 73 /min BP Systolic 146 mmHg BP Diastolic 89 mmHg O2 Saturation Level with Exercise 93 % 12/27/2011 Weight 229.00 lb Heart Rate 76 /min BP Systolic 135 mmHg BP Diastolic 86 mmHg 09/11/2011 Weight 227.00 lb Heart Rate 68 /min BP Systolic 150 mmHg BP Diastolic 87 mmHg Urine Dipstick - Blood 2+ And Pos For A Trace Of WBC Urine Dipstick - Protein NEGATIVE Urine Dipstick - Glucose NEGATIVE 07/03/2011 Weight 231.00 lb Heart Rate 65 /min BP Systolic 143 mmHg BP Diastolic 78 mmHg Height 74.25 inches 6'2.25" BMI (Body Mass Index) 29.5 kg/m2 02/08/2011 Weight 229.00 lb Heart Rate 79 /min BP Systolic 141 mmHg BP Diastolic 87 mmHg 11/28/2010 Weight 226.00 lb Heart Rate 58 /min BP Systolic 139 mmHg BP Diastolic 80 mmHg 10/17/2010 Weight 223.00 lb Heart Rate 58 /min BP Systolic 140 mmHg BP Diastolic 72 mmHg 09/20/2010 Body Temperature 98.8 F 09/12/2010 Weight 223.00 lb Heart Rate 91 /min BP Systolic 147 mmHg BP Diastolic 95 mmHg 07/20/2010 Weight 227.00 lb Heart Rate 67 /min BP Systolic 139 mmHg BP Diastolic 82 mmHg Height 73 inches 6'1" BMI (Body Mass Index) 29.9 kg/m2 Urine Dipstick - Blood NEGATIVE Urine Dipstick - Protein NEGATIVE Urine Dipstick - Glucose NEGATIVE 06/01/2010 Weight 226.00 lb Heart Rate 53 /min BP Systolic 122 mmHg BP Diastolic 76 mmHg 05/30/2010 Weight 226.00 lb Heart Rate 64 /min BP Systolic 127 mmHg BP Diastolic 77 mmHg 11/08/2009 Body Temperature 98.0 F Weight 223.00 lb Heart Rate 80 /min BP Systolic 124 mmHg BP Diastolic 68 mmHg 09/16/2009 Weight 224.00 lb Heart Rate 76 /min BP Systolic 140 mmHg BP Diastolic 84 mmHg 07/07/2009 Heart Rate 72 /min BP Systolic 143 mmHg BP Diastolic 88 mmHg 06/30/2009 Weight 207.00 lb Heart Rate 43 /min BP Systolic 144 mmHg BP Diastolic 93 mmHg Height 73.5 inches 6'1.50" BMI (Body Mass Index) 26.9 kg/m2 Urine Dipstick - Blood NEGATIVE Urine Dipstick - Protein NEGATIVE Urine Dipstick - Glucose NEGATIVE 10/23/2008 Weight 218.00 lb Heart Rate 40 /min BP Systolic 134 mmHg BP Diastolic 83 mmHg 05/29/2008 Body Temperature 97.6 F Weight 222.00 lb Heart Rate 69 /min BP Systolic 135 mmHg BP Diastolic 87 mmHg Height 74 inches 6'2" BMI (Body Mass Index) 28.5 kg/m2 04/24/2008 Weight 227.00 lb Heart Rate 72 /min BP Systolic 133 mmHg BP Diastolic 88 mmHg Height 74 inches 6'2" BMI (Body Mass Index) 29.1 kg/m2 03/30/2008 Weight 226.00 lb Heart Rate 54 /min BP Systolic 123 mmHg BP Diastolic 78 mmHg Height 74 inches 6'2" BMI (Body Mass Index) 29.0 kg/m2 11/29/2007 Weight 222.00 lb Heart Rate 81 /min BP Systolic 146 mmHg BP Diastolic 76 mmHg Height 74 inches 6'2" BMI (Body Mass Index) 28.5 kg/m2 10/02/2007 Weight 224.00 lb Heart Rate 60 /min BP Systolic 142 mmHg BP Diastolic 85 mmHg Height 74 inches 6'2" BMI (Body Mass Index) 28.8 kg/m2 06/07/2007 Weight 227.00 lb Heart Rate 74 /min BP Systolic 138 mmHg BP Diastolic 71 mmHg Height 74 inches 6'2" BMI (Body Mass Index) 29.1 kg/m2 06/03/2007 Body Temperature 97.8 F Height 74 inches 6'2" 04/26/2007 Body Temperature 97.1 F Weight 226.00 lb Heart Rate 74 /min BP Systolic 147 mmHg BP Diastolic 80 mmHg Height 74 inches 6'2" BMI (Body Mass Index) 29.0 kg/m2 01/04/2007 Weight 224.00 lb Heart Rate 74 /min BP Systolic 134 mmHg BP Diastolic 68 mmHg Height 74 inches 6'2" BMI (Body Mass Index) 28.8 kg/m2 Urine Dipstick - Blood NEGATIVE Urine Dipstick - Protein NEGATIVE Urine Dipstick - Glucose NEGATIVE 10/12/2006 Weight 227.00 lb Heart Rate 52 /min BP Systolic 126 mmHg BP Diastolic 68 mmHg 10/05/2006 Weight 227.00 lb Heart Rate 64 /min BP Systolic 148 mmHg BP Diastolic 72 mmHg 07/06/2006 Weight 226.00 lb Heart Rate 30 /min BP Systolic 144 mmHg BP Diastolic 72 mmHg 06/13/2006 Weight 223.00 lb Heart Rate 80 /min BP Systolic 164 mmHg BP Diastolic 82 mmHg 01/22/2006 Weight 222.00 lb Heart Rate 78 /min BP Systolic 124 mmHg BP Diastolic 60 mmHg 01/18/2006 Weight 223.00 lb Heart Rate 70 /min BP Systolic 118 mmHg BP Diastolic 64 mmHg 01/17/2006 Body Temperature 97.2 F Weight 225.00 lb Heart Rate 70 /min BP Systolic 134 mmHg BP Diastolic 74 mmHg 12/18/2005 Weight 229.00 lb Heart Rate 60 /min BP Systolic 140 mmHg BP Diastolic 74 mmHg 09/18/2005 Weight 217.00 lb Heart Rate 80 /min BP Systolic 154 mmHg BP Diastolic 82 mmHg 07/19/2005 Weight 231.00 lb Heart Rate 62 /min BP Systolic 138 mmHg BP Diastolic 76 mmHg 06/27/2005 Weight 222.00 lb Heart Rate 67 /min BP Systolic 122 mmHg BP Diastolic 63 mmHg 06/12/2005 Weight 227.00 lb Heart Rate 66 /min BP Systolic 150 mmHg BP Diastolic 86 mmHg Urine Dipstick - Blood NEGATIVE Urine Dipstick - Protein NEGATIVE Urine Dipstick - Glucose NEGATIVE 10/17/2004 Weight 231.00 lb Heart Rate 58 /min BP Systolic 143 mmHg BP Diastolic 83 mmHg Results Test Date Test Result H/L Range Note CBC with Auto Diff-fcmg 02/04/2018 WBC 8.8 K/uL 4.1-11.0 RBC 4.07 M/uL Low 4.60-6.10 Hemoglobin 14.3 gm/dL 13.5-18.0 Hematocrit 42.5 % 41.0-53.0 MCV 104.6 fL High 80.0-97.0 MCH 35.1 pg High 27.0-32.0 MCHC 33.5 g/dL 32.0-36.0 RDW 15.0 % High 11.5-14.5 PLT Count 383 K/ul 140-400 MPV 7.4 FL 7.1-10.7 Neutrophil 71.4 % 35.0-75.0 Lymphocyte 15.6 % Low 16.0-52.0 Monocyte 7.6 % 2.0-10.0 Eosinophil 4.1 % 0.0-5.0 Basophil 1.3 % 0.0-4.0 Abs Neutrophils 6.3 K/uL 2.1-8.0 Abs Lymphocytes 1.4 K/uL 0.8-5.5 Abs Monocytes 0.7 K/uL 0.1-1.0 Abs Eosinophils 0.4 K/uL 0.0-0.5 Abs Basophils 0.1 K/uL 0.0-0.3 Iron Panel 02/04/2018 Iron, Total 127 g/dL 65-175 Transferrin 192.0 mg/dL Low 203.0-362.0 Tibc (calc) 269 g/dL 261-478 % Iron Saturation 47.2 % High 13.0-45.0 Laboratory test finding 02/04/2018 Ferritin 209.2 ng/ml 23.9-336.2 Folate >23.0 ng/ml 5.9-24.8 Vitamin B12 279 pg/mL 180-914 Laboratory test finding 02/04/2018 Lead,Venous WB-RL <pending> Lead Venous 02/04/2018 Lead,Venous WB @ <2.0 g/dL (0.0-4.9) 1 CBC With Auto Diff 07/11/2017 WBC 6.9 K/uL 4.1-11.0 RBC 4.44 M/uL Low 4.60-6.10 Hemoglobin 15.9 gm/dL 13.5-18.0 Hematocrit 46.4 % 41.0-53.0 MCV 104.6 fL High 80.0-97.0 MCH 35.9 pg High 27.0-32.0 MCHC 34.3 g/dL 32.0-36.0 RDW 14.3 % 11.5-14.5 PLT Count 266 K/ul 140-400 MPV 7.6 FL 7.1-10.7 Neutrophil 71.0 % 35.0-75.0 Lymphocyte 17.7 % 16.0-52.0 Monocyte 9.1 % 2.0-10.0 Eosinophil 1.8 % 0.0-5.0 Basophil 0.4 % 0.0-4.0 Abs Neutrophils 4.9 K/uL 2.1-8.0 Abs Lymphocytes 1.2 K/uL 0.8-5.5 Abs Monocytes 0.6 K/uL 0.1-1.0 Abs Eosinophils 0.1 K/uL 0.0-0.5 Abs Basophils 0.0 K/uL 0.0-0.3 Laboratory test finding 07/11/2017 Iron, Total 88 g/dL 65-175 CBC With Auto Diff 05/31/2017 WBC 7.3 K/uL 4.1-11.0 RBC 4.35 M/uL Low 4.60-6.10 Hemoglobin 15.8 gm/dL 13.5-18.0 Hematocrit 46.4 % 41.0-53.0 MCV 106.8 fL High 80.0-97.0 MCH 36.2 pg High 27.0-32.0 MCHC 33.9 g/dL 32.0-36.0 RDW 14.6 % High 11.5-14.5 PLT Count 265 K/ul 140-400 MPV 8.0 FL 7.1-10.7 Neutrophil 65.7 % 35.0-75.0 Lymphocyte 21.7 % 16.0-52.0 Monocyte 9.3 % 2.0-10.0 Eosinophil 2.4 % 0.0-5.0 Basophil 0.9 % 0.0-4.0 Abs Neutrophils 4.8 K/uL 2.1-8.0 Abs Lymphocytes 1.6 K/uL 0.8-5.5 Abs Monocytes 0.7 K/uL 0.1-1.0 Abs Eosinophils 0.2 K/uL 0.0-0.5 Abs Basophils 0.1 K/uL 0.0-0.3 Comprehensive Met Panel-[facility] 05/31/2017 Sodium 142 mmol/L 135-146 2 Potassium 4.1 mmol/L 3.5-5.2 Chloride# 103 mmol/L 97-110 3 Carbon Dioxide 34 mmol/L 24-34 Glucose 77 mg/dL 70-105 Creatinine 1.1 mg/dL 0.5-1.4 Calcium 9.9 mg/dL 8.5-10.2 Total Protein 6.7 g/dL 6.0-8.0 Albumin 4.1 g/dL 3.6-4.9 Globulin 2.6 g/dL 2.0-3.5 A/G Ratio 1.6 Ratio 1.0-2.2 Total Bilirubin 0.8 mg/dL 0.1-1.3 Alkaline Phosphatase 66 U/L 24-140 Alt 16 U/L 3-42 Ast 16 U/L 8-42 Linda Egfr >60 >60 4 Non Linda Egfr >60 >60 5 Anion Gap 5 mmol/L Low 7-16 6 BUN 12 mg/dL 6-26 Lipid 05/31/2017 Cholesterol 171 mg/dL 50-199 Triglycerides 92 mg/dL 30-200 HDL 57 mg/dL 29-71 7 Chol/ HDL Ratio 3.0 ratio Low 4.0-6.7 VLDL 18 mg/dL 2-29 LDL (Calc) 96 mg/dL 20-99 8 Laboratory test finding 05/31/2017 PSA 7.650 ng/mL High 0.000-4.000 9 Vit D25oh 28 ng/mL Low 31-100 CBC With Auto Diff 12/27/2016 WBC 7.0 K/uL 4.1-11.0 RBC 4.41 M/uL Low 4.60-6.10 Hemoglobin 12.9 gm/dL Low 13.5-18.0 Hematocrit 41.0 % 41.0-53.0 MCV 93.0 fL 80.0-97.0 MCH 29.3 pg 27.0-32.0 MCHC 31.5 g/dL Low 32.0-36.0 RDW 27.9 % High 11.5-14.5 PLT Count 243 K/ul 140-400 Neutrophil 57.6 % 35.0-75.0 Lymphocyte 25.6 % 16.0-52.0 Monocyte 11.0 % High 2.0-10.0 Eosinophil 4.2 % 0.0-5.0 Basophil 1.6 % 0.0-4.0 Abs Neutrophils 4.0 K/uL 2.1-8.0 Abs Lymphocytes 1.8 K/uL 0.8-5.5 Abs Monocytes 0.8 K/uL 0.1-1.0 Abs Eosinophils 0.3 K/uL 0.0-0.5 Abs Basophils 0.1 K/uL 0.0-0.3 Iron Panel 10/30/2016 Iron, Total 39 g/dL Low 65-175 Transferrin 305.0 mg/dL 203.0-362.0 Tibc (calc) 427 g/dL 261-478 % Iron Saturation 9.1 % Low 13.0-45.0 Laboratory test finding 10/30/2016 Vitamin B12 214 pg/mL 180-914 CBC With Auto Diff 10/30/2016 WBC 8.2 K/uL 4.1-11.0 RBC 2.91 Results michaela <SEE NOTE> M/uL Low 4.60-6.10 10 Hemoglobin 7.5 Results veri <SEE NOTE> gm/dL Low 13.5-18.0 11 Hematocrit 24.2 Results michaela <SEE NOTE> % Low 41.0-53.0 12 MCV 83.2 fL 80.0-97.0 MCH 25.9 pg Low 27.0-32.0 MCHC 31.1 g/dL Low 32.0-36.0 RDW 20.6 % High 11.5-14.5 PLT Count 300 K/ul 140-400 Neutrophil 74.0 % 35.0-75.0 Lymphocyte 14.1 % Low 16.0-52.0 Monocyte 9.8 % 2.0-10.0 Eosinophil 1.2 % 0.0-5.0 Basophil 0.9 % 0.0-4.0 Abs Neutrophils 6.0 K/uL 2.1-8.0 Abs Lymphocytes 1.2 K/uL 0.8-5.5 Abs Monocytes 0.8 K/uL 0.1-1.0 Abs Eosinophils 0.1 K/uL 0.0-0.5 Abs Basophils 0.1 K/uL 0.0-0.3 CBC With Auto Diff 05/19/2016 WBC 6.9 K/uL 4.1-11.0 RBC 4.52 M/uL Low 4.60-6.10 Hemoglobin 16.1 gm/dL 13.5-18.0 Hematocrit 47.9 % 41.0-53.0 MCV 106.1 fL High 80.0-97.0 MCH 35.7 pg High 27.0-32.0 MCHC 33.6 g/dL 32.0-36.0 RDW 15.0 % High 11.5-14.5 PLT Count 275 K/ul 140-400 Neutrophil 61.1 % 35.0-75.0 Lymphocyte 26.8 % 16.0-52.0 Monocyte 8.0 % 2.0-10.0 Eosinophil 2.9 % 0.0-5.0 Basophil 1.2 % 0.0-4.0 Abs Neutrophils 4.2 K/uL 2.1-8.0 Abs Lymphocytes 1.8 K/uL 0.8-5.5 Abs Monocytes 0.5 K/uL 0.1-1.0 Abs Eosinophils 0.2 K/uL 0.0-0.5 Abs Basophils 0.1 K/uL 0.0-0.3 Comprehensive Metabolic (CMP) 05/19/2016 Sodium 141 mmol/L 134-142 Potassium 5.1 mmol/L 3.5-5.2 Chloride 103 mmol/L 97-109 Carbon Dioxide 34 mmol/L 24-34 Glucose 114 mg/dL High 70-105 BUN 7 mg/dL 6-26 Creatinine 1.0 mg/dL 0.5-1.4 Calcium 9.8 mg/dL 8.5-10.2 Total Protein 6.5 g/dL 6.0-8.0 Albumin 3.9 g/dL 3.6-4.9 Globulin 2.6 g/dL 2.0-3.5 A/G Ratio 1.5 Ratio 1.0-2.2 Total Bilirubin 0.8 mg/dL 0.1-1.3 Alkaline Phosphatase 60 U/L 24-140 Alt 17 U/L 3-42 Ast 15 U/L 8-42 Anion Gap 9 mmol/L 6-14 Linda Egfr >60 >60 13 Non Linda Egfr >60 >60 14 Lipid 05/19/2016 Cholesterol 147 mg/dL 50-199 Triglycerides 55 mg/dL 30-200 HDL 57 mg/dL 29-71 15 Chol/ HDL Ratio 2.6 ratio Low 4.0-6.7 VLDL 11 mg/dL 2-29 LDL (Calc) 79 mg/dL 20-99 16 Laboratory test finding 05/19/2016 PSA 8.630 ng/mL High 0.000-4.000 17 Vit D,25 Hydroxy 28 ng/mL Low 31-100 Vitamin B12 174 pg/mL Low 180-914 Laboratory test finding 05/26/2015 Urine Culture Microbiology res <SEE 18 NOTE> Comprehensive Metabolic 05/26/2015 Sodium 139 mmol/L 134-142 (CMP) Potassium 4.6 mmol/L 3.5-5.2 Chloride 103 mmol/L 97-109 Carbon Dioxide 31 mmol/L 24-34 Glucose 82 mg/dL 70-105 BUN 12 mg/dL 6-26 Creatinine 1.0 mg/dL 0.5-1.4 Calcium 9.7 mg/dL 8.5-10.2 Total Protein 6.3 g/dL 6.0-8.0 Albumin 3.8 g/dL 3.6-4.9 Globulin 2.5 g/dL 2.0-3.5 A/G Ratio 1.5 Ratio 1.0-2.2 Total Bilirubin 0.7 mg/dL 0.1-1.3 Alkaline Phosphatase 65 U/L 24-140 Alt 15 U/L 3-42 Ast 15 U/L 8-42 Anion Gap 10 mmol/L 6-14 Linda Egfr >60 >60 19 Non Linda Egfr >60 >60 20 CBC With Auto Diff 05/26/2015 WBC 6.9 K/uL 4.1-11.0 RBC 4.53 M/uL Low 4.60-6.10 Hemoglobin 15.7 gm/dL 13.5-18.0 Hematocrit 47.1 % 41.0-53.0 MCV 104.0 fL High 80.0-97.0 MCH 34.6 pg High 27.0-32.0 MCHC 33.3 g/dL 32.0-36.0 RDW 14.6 % High 11.5-14.5 PLT Count 238 K/ul 140-400 Neutrophil 63.3 % 35.0-75.0 Lymphocyte 22.2 % 16.0-52.0 Monocyte 10.7 % High 2.0-10.0 Eosinophil 3.2 % 0.0-5.0 Basophil 0.6 % 0.0-4.0 Abs Neutrophils 4.4 K/uL 2.1-8.0 Abs Lymphocytes 1.5 K/uL 0.8-5.5 Abmon 0.7 K/uL 0.1-1.0 Abs Eosinophils 0.2 K/uL 0.0-0.5 Abs Basophils 0.0 K/uL 0.0-0.3 Lipid 05/26/2015 Cholesterol 146 mg/dL 50-199 Triglycerides 78 mg/dL 30-200 HDL 48 mg/dL 29-71 21 Chol/ HDL Ratio 3.0 ratio Low 4.0-6.7 VLDL 16 mg/dL 2-29 LDL (Calc) 82 mg/dL 20-99 22 Laboratory test finding 05/26/2015 Vitamin B12 249 pg/mL 180-914 Vit D,25 Hydroxy 18 ng/mL Low 31-100 TSH 2.77 uIU/mL 0.35-4.94 PSA 10.860 Results v <SEE NOTE> ng/mL High 0.000-4.000 23 Laboratory test finding 11/09/2014 Vitamin B12 170 pg/mL Low 180-914 24 Laboratory test finding 11/09/2014 B Natriuretic Pep 174 pg/mL High (0-100 ) 24, 25 Lipid 11/09/2014 Cholesterol 148 mg/dL 50-199 24 Triglycerides 111 mg/dL 30-200 24 HDL 44 mg/dL 29- 24, 26 Chol/ HDL Ratio 3.4 ratio Low 4.0-6.7 24 VLDL 22 mg/dL 2-29 24 LDL (Calc) 82 mg/dL 20-99 24, 27 CBC With Auto Diff 11/09/2014 WBC 6.3 K/uL 4.1-11.0 24 RBC 4.80 M/uL 4.60-6.10 24 Hemoglobin 16.2 gm/dL 13.5-18.0 24 Hematocrit 49.1 % 41.0-53.0 24 MCV 102.3 fL High 80.0-97.0 24 MCH 33.7 pg High 27.0-32.0 24 MCHC 32.9 g/dL 32.0-36.0 24 RDW 14.0 % 11.5-14.5 24 PLT Count 245 K/ul 140-400 24 Neutrophil 63.3 % 35.0-75.0 24 Lymphocyte 24.2 % 16.0-52.0 24 Monocyte 8.4 % 2.0-10.0 24 Eosinophil 3.1 % 0.0-5.0 24 Basophil 1.0 % 0.0-4.0 24 Abs Neutrophils 4.0 K/uL 2.1-8.0 24 Abs Lymphocytes 1.5 K/uL 0.8-5.5 24 Abmon 0.5 K/uL 0.1-1.0 24 Abs Eosinophils 0.2 K/uL 0.0-0.5 24 Abs Basophils 0.1 K/uL 0.0-0.3 24 Comprehensive Metabolic (CMP) 11/09/2014 Sodium 137 mmol/L 134-142 24 Potassium 4.4 mmol/L 3.5-5.2 24 Chloride 104 mmol/L 97-109 24 Carbon Dioxide 28 mmol/L 24-34 24 Glucose 99 mg/dL 70-105 24 BUN 12 mg/dL 6-26 24 Creatinine 1.1 mg/dL 0.5-1.4 24 Calcium 9.3 mg/dL 8.5-10.2 24 Total Protein 6.3 g/dL 6.0-8.0 24 Albumin 3.7 g/dL 3.6-4.9 24 Globulin 2.6 g/dL 2.0-3.5 24 A/G Ratio 1.4 Ratio 1.0-2.2 24 Total Bilirubin 0.6 mg/dL 0.1-1.3 24 Alkaline Phosphatase 65 U/L 24-140 24 Alt 11 U/L 3-42 24 Ast 14 U/L 8-42 24 Anion Gap 9 mmol/L 6-14 24 Linda Egfr >60 >60 24, 28 Non Linda Egfr >60 >60 24, 29 CBC With Auto Diff 08/11/2014 WBC 6.6 K/uL 4.1-11.0 30 RBC 4.03 M/uL Low 4.60-6.10 30 Hemoglobin 14.3 gm/dL 13.5-18.0 30 Hematocrit 43.2 % 41.0-53.0 30 MCV 107.1 fL High 80.0-97.0 30 MCH 35.6 pg High 27.0-32.0 30 MCHC 33.2 g/dL 32.0-36.0 30 RDW 15.2 % High 11.5-14.5 30 PLT Count 315 K/ul 140-400 30 Neutrophil 68.3 % 35.0-75.0 30 Lymphocyte 17.7 % 16.0-52.0 30 Monocyte 10.2 % High 2.0-10.0 30 Eosinophil 3.1 % 0.0-5.0 30 Basophil 0.7 % 0.0-4.0 30 Abs Neutrophils 4.5 K/uL 2.1-8.0 30 Abs Lymphocytes 1.2 K/uL 0.8-5.5 30 Abmon 0.7 K/uL 0.1-1.0 30 Abs Eosinophils 0.2 K/uL 0.0-0.5 30 Abs Basophils 0.0 K/uL 0.0-0.3 30 Laboratory test finding 08/11/2014 B Natriuretic Pep 108 pg/mL High (0-100 ) Comprehensive Metabolic (CMP) 06/05/2014 Sodium 139 mmol/L 134-142 30 Potassium 4.4 mmol/L 3.5-5.2 30 Chloride 104 mmol/L 97-109 30 Carbon Dioxide 28 mmol/L 24-34 30 Glucose 86 mg/dL 70-105 30 BUN 13 mg/dL 6-26 30 Creatinine 0.9 mg/dL 0.5-1.4 30 Calcium 9.0 mg/dL 8.5-10.2 30 Total Protein 6.4 g/dL 6.0-8.0 30 Albumin 3.9 g/dL 3.6-4.9 30 Globulin 2.5 g/dL 2.0-3.5 30 A/G Ratio 1.6 Ratio 1.0-2.2 30 Total Bilirubin 0.8 mg/dL 0.1-1.3 30 Alkaline Phosphatase 54 U/L 24-140 30 Alt 15 U/L 3-42 30 Ast 16 U/L 8-42 30 Anion Gap 11 mmol/L 6-14 30 Linda Egfr >60 >60 30, 31 Non Linda Egfr >60 >60 30, 32 CBC With Auto Diff 06/05/2014 WBC 6.5 K/uL 4.1-11.0 30 RBC 4.50 M/uL Low 4.60-6.10 30 Hemoglobin 15.8 gm/dL 13.5-18.0 30 Hematocrit 46.9 % 41.0-53.0 30 MCV 104.2 fL High 80.0-97.0 30 MCH 35.2 pg High 27.0-32.0 30 MCHC 33.8 g/dL 32.0-36.0 30 RDW 14.2 % 11.5-14.5 30 PLT Count 238 K/ul 140-400 30 Neutrophil 59.1 % 35.0-75.0 30 Lymphocyte 27.7 % 16.0-52.0 30 Monocyte 9.0 % 2.0-10.0 30 Eosinophil 3.3 % 0.0-5.0 30 Basophil 0.9 % 0.0-4.0 30 Abs Neutrophils 3.8 K/uL 2.1-8.0 30 Abs Lymphocytes 1.8 K/uL 0.8-5.5 30 Abmon 0.6 K/uL 0.1-1.0 30 Abs Eosinophils 0.2 K/uL 0.0-0.5 30 Abs Basophils 0.1 K/uL 0.0-0.3 30 Laboratory test finding 06/05/2014 Uric Acid 8.4 mg/dL 2.6-8.4 30 Lipid 06/05/2014 Cholesterol 152 mg/dL 50-199 30 Triglycerides 130 mg/dL 30-200 30 HDL 44 mg/dL 29-71 30, 33 Chol/ HDL Ratio 3.5 ratio Low 4.0-6.7 30 VLDL 26 mg/dL 2-29 30 LDL (Calc) 82 mg/dL 20-99 30, 34 Laboratory test finding 06/05/2014 TSH 2.50 uIU/mL 0.34-5.60 30 Vitamin B12 182 pg/mL 180-914 30 Laboratory test 06/05/2014 B Natriuretic Pep 131 pg/mL High (0-100) 30, 35 finding Laboratory test 09/15/2013 Urine Culture Microbiology res 36, 37 finding <SEE NOTE> Comprehensive 09/09/2012 Sodium 139 mmol/L 134-142 36 Metabolic (CMP) Potassium 4.5 mmol/L 3.5-5.2 36 Chloride 103 mmol/L 97-109 36 Carbon Dioxide 32 mmol/L 24-34 36 Glucose 103 mg/dL 70-105 36 BUN 17 mg/dL 6-26 36 Creatinine 1.2 mg/dL 0.5-1.4 36 Calcium 9.2 mg/dL 8.5-10.2 36 Total Protein 6.6 g/dL 6.0-8.0 36 Albumin 4.0 g/dL 3.6-4.9 36 Globulin 2.6 g/dL 2.0-3.5 36 A/G Ratio 1.5 Ratio 1.0-2.2 36 Total Bilirubin 0.6 mg/dL 0.1-1.3 36 Alkaline Phosphatase 64 U/L 24-140 36 Alt 15 U/L 3-42 36 Ast 14 U/L 8-42 36 Anion Gap 9 mmol/L 6-14 36 Linda Egfr >60 >60 36, 38 Non Linda Egfr 57 Low >60 36, 39 CBC With Auto Diff 09/09/2012 WBC 6.9 K/uL 4.1-11.0 36 RBC 4.51 M/uL Low 4.60-6.10 36 Hemoglobin 15.4 gm/dL 13.5-18.0 36 Hematocrit 46.9 % 41.0-53.0 36 MCV 103.9 fL High 80.0-97.0 36 MCH 34.1 pg High 27.0-32.0 36 MCHC 32.8 g/dL 32.0-36.0 36 RDW 13.8 % 11.5-14.5 36 PLT Count 286 K/ul 140-400 36 Neutrophil 59.4 % 35.0-75.0 36 Lymphocyte 26.2 % 16.0-52.0 36 Monocyte 9.7 % 2.0-10.0 36 Eosinophil 4.0 % 0.0-5.0 36 Basophil 0.7 % 0.0-4.0 36 Abs Neutrophils 4.1 K/uL 2.1-8.0 36 Abs Lymphocytes 1.8 K/uL 0.8-5.5 36 Abs Monocytes 0.7 K/uL 0.1-1.0 36 Abs Eosinophils 0.3 K/uL 0.0-0.5 36 Abs Basophils 0.0 K/uL 0.0-0.3 36 Laboratory test finding 09/09/2012 Uric Acid 8.1 mg/dL 2.6-8.4 36 Laboratory test finding 09/09/2012 B Natriuretic Pep 35 pg/mL (0-100) 36 , 40 Comprehensive Metabolic 04/15/2012 Sodium 139 mmol/L 134-142 36 (CMP) Potassium 5.2 mmol/L 3.5-5.2 36 Chloride 103 mmol/L 97-109 36 Carbon Dioxide 33 mmol/L 24-34 36 Glucose 97 mg/dL 70-105 36 BUN 11 mg/dL 6-26 36 Creatinine 0.9 mg/dL 0.5-1.4 36 Calcium 9.5 mg/dL 8.5-10.2 36 Total Protein 6.5 g/dL 6.0-8.0 36 Albumin 4.0 g/dL 3.6-4.9 36 Globulin 2.5 g/dL 2.0-3.5 36 A/G Ratio 1.6 Ratio 1.0-2.2 36 Total Bilirubin 0.7 mg/dL 0.1-1.3 36 Alkaline Phosphatase 55 U/L 24-140 36 Alt 14 U/L 3-42 36 Ast 14 U/L 8-42 36 Anion Gap 8 mmol/L 6-14 36 Linda Egfr >60 >60 36, 41 Non Linda Egfr >60 >60 36, 42 CBC With Auto Diff 04/15/2012 WBC 6.2 K/uL 4.1-11.0 36 RBC 4.58 M/uL Low 4.60-6.10 36 Hemoglobin 15.7 gm/dL 13.5-18.0 36 Hematocrit 46.5 % 41.0-53.0 36 MCV 101.5 fL High 80.0-97.0 36 MCH 34.3 pg High 27.0-32.0 36 MCHC 33.8 g/dL 32.0-36.0 36 RDW 14.4 % 11.5-14.5 36 PLT Count 232 K/ul 140-400 36 Neutrophil 61.0 % 35.0-75.0 36 Lymphocyte 24.9 % 16.0-52.0 36 Monocyte 8.4 % 2.0-10.0 36 Eosinophil 4.9 % 0.0-5.0 36 Basophil 0.8 % 0.0-4.0 36 Abs Neutrophils 3.8 K/uL 2.1-8.0 36 Abs Lymphocytes 1.5 K/uL 0.8-5.5 36 Abs Monocytes 0.5 K/uL 0.1-1.0 36 Abs Eosinophils 0.3 K/uL 0.0-0.5 36 Abs Basophils 0.1 K/uL 0.0-0.3 36 Laboratory test 04/15/2012 TSH 2.58 uIU/mL 0.34-5.60 36 finding Laboratory test 04/15/2012 B Natriuretic Pep 84 pg/mL (0-100) 36, 43 finding Laboratory test 09/11/2011 Urine Culture Microbiology res 36, 44 finding <SEE NOTE> Laboratory test 09/11/2011 Bilirubin Urine NEGATIVE (Neg) 36, 45 finding Urine Microscopic 09/11/2011 Urine WBC 3-5 /HPF (0-5) 36 Only -RL Urine RBC * >150 /HPF (0-2) 36 Bacteria 1+ /HPF 36, 46 Urinalysis-RL 09/11/2011 Color JO 36 Appearance CLOUDY 36 Spec Grav Urine 1.019 (1.003-1.030) 36 PH Urine 6.0 (5.0-7.5) 36 Leuk Esterase TRACE (Neg) 36 Nitrite Urine NEGATIVE (Neg) 36 Protein Urine NEGATIVE (Neg) 36 Glucose Urine NEGATIVE (Neg) 36 Ketone Urine NEGATIVE (Neg) 36 Urobilinogen 0.2 mg/dL (0-1.0) 36 Blood/HGB Urine 3+ (Neg) 36, 47 Comprehensive Metabolic (CMP) 07/03/2011 Sodium 138 mmol/L 135-144 48 Potassium 4.7 mmol/L 3.6-5.2 48 Chloride 102 mmol/L 97-110 48 Carbon Dioxide 29 mmol/L 23-32 48 Glucose 96 mg/dL 70-105 48 BUN 11 mg/dL 6-22 48 Creatinine 1.0 mg/dL 0.5-1.3 48 Calcium 9.5 mg/dL 8.6-10.2 48 BUN/CR 11 ratio Low 12-20 48 Total Protein 6.4 g/dL 5.8-7.8 48 Albumin 3.7 g/dL 3.5-4.8 48 Globulin 2.7 g/dL 2.0-3.5 48 A/G Ratio 1.4 Ratio 1.0-2.2 48 Total Bilirubin 1.0 mg/dL 0.3-1.2 48 Alkaline Phosphatase 47 U/L 24-140 48 Alt 19 U/L 5-45 48 Ast 21 U/L 12-40 48 Anion Gap 12 mmol/L 8-16 48 Non Linda Egfr >60 >60 48, 49 Linda Egfr >60 >60 48, 50 Lipid 07/03/2011 Cholesterol 191 mg/dL 50-199 48 Triglycerides 227 mg/dL High 10-150 48 HDL 44 mg/dL 29-71 48, 51 Chol/ HDL Ratio 4.3 ratio 4.0-6.7 48 VLDL 45 mg/dL High 2-29 48 LDL (Calc) 102 mg/dL 20-129 48, 52 Laboratory test 07/03/2011 TSH 2.77 uIU/mL 0.34-5.60 48 finding Laboratory test 07/03/2011 B Natriuretic Pep 57 pg/mL (0-100) 48, 53 finding PSA Total And Free -RL 07/03/2011 PSA Total 6.4 NG/ML High (0.0-4.0) 48 PSA Free 0.4 NG/ML 48 PSA % Free 6 % 48, 54 PSA Total And Free -RL 10/17/2010 PSA Total 5.8 NG/ML High (0.0-4.0) 55 PSA Free 0.4 NG/ML 55 PSA % Free 7 % 55, 56 PT And Inr 08/04/2010 Prothrombin Time 11.4 SEC 10.2-12.0 57, 58 Inr 0.98 Low 2.00-3.0 57, 59 CMP 07/22/2010 Sodium 139 mmol/L 135-144 60 Potassium 5.3 mmol/L High 3.6-5.2 60 Chloride 103 mmol/L 97-110 60 Carbon Dioxide 30 mmol/L 23-32 60 Glucose 98 mg/dL 70-105 60 BUN 8 mg/dL 6-22 60 Creatinine 1.1 mg/dL 0.5-1.3 60 BUN/CR 7 Ratio 60 Calcium 9.3 mg/dL 8.6-10.2 60, 61 Total Protein 6.3 g/dL 5.8-7.8 60 Albumin 3.6 g/dL 3.5-4.8 60 Globulin 2.7 g/dL 2.0-3.5 60 A/G Ratio 1.3 Ratio 1.0-2.2 60 Total Bilirubin 1.1 mg/dL 0.3-1.2 60 Alkaline Phosphatase 52 U/L 24-140 60 Alt 19 U/L 5-45 60 Ast 17 U/L 12-40 60 Anion Gap 11 mmol/L 8-16 60 GFR Calculation > 60 mL/min 60-175 60, 62 GFR For > 60 mL/min 60-175 60, 63 CBC With Auto Diff 07/22/2010 WBC 6.2 K/ul 4.0-10.9 60 RBC 4.45 M/ul Low 4.70-6.10 60 Hemoglobin 15.8 GM/dl 13.5-18.0 60 Hematocrit 45.4 % 42.0-52.0 60 MCV 102.0 FL High 80.0-97.0 60 MCH 35.4 pg High 27.0-31.0 60 MCHC 34.7 g/dL 32.0-36.0 60 RDW 13.2 % 11.5-14.5 60 Platelet Count 241 K/ul 140-440 60 Neutrophils 53.1 % 50-70 60 Lymphocytes 29.2 % 20-44 60 Monocytes 9.9 % High 2-9 60 Eosinophil 7.2 % High 0-4 60 Basophil 0.6 % 0-2 60 Absolute Neutrophils 3.3 K/ul 2.05-7.63 60 Absolute Lymphocytes 1.8 K/ul 0.8-4.8 60 Absolute Monocytes 0.6 K/ul 0.1-1.0 60 Absolute Eosinophils 0.4 K/ul 0.1-0.5 60 Absolute Basophils 0.0 K/ul 0.0-0.3 60 Hematology Comment (Comm2) N/A 60 Lipid Panel 07/22/2010 Cholesterol 168 mg/dL 50-199 60 Triglycerides 126 mg/dL 10-150 60 HDL 49 mg/dL 29-71 60, 64 Chol/HDL Ratio 3.4 Ratio Low 4.0-6.7 60, 65 VLDL 25 mg/dL 2-29 60 LDL (Calc) 94 mg/dL 20-129 60, 66 Laboratory test finding 07/22/2010 Free T4 0.95 ng/dL 0.50-1.60 60 TSH 2.73 uIU/ml 0.34-5.60 60 PSA 5.67 ng/ml High 0.00-4.00 60, 67 Magnesium 2.0 mg/dL 1.8-2.5 60 Laboratory test finding 07/07/2009 TSH 3.54 uIU/ml 0.34-5.60 68 PSA 4.66 ng/ml High 0.00-4.00 68, 69 Lipid TX Panel 07/07/2009 Ast 17 U/L 12-40 68 Alt 19 U/L 5-45 68 Cholesterol 190 mg/dL 50-199 68 Triglycerides 74 mg/dL 10-150 68 HDL 50 mg/dL 29-71 68, 70 LDL (Calc) 125 mg/dL 20-129 68, 71 Chol/HDL Ratio 3.8 Ratio Low 4.0-6.7 68, 72 VLDL 15 mg/dL 2-29 68 CBC With Auto Diff 07/07/2009 WBC 6.6 K/ul 4.0-10.9 68 RBC 4.62 M/ul Low 4.70-6.10 68 Hemoglobin 15.8 GM/dl 13.5-18.0 68 Hematocrit 46.8 % 42.0-52.0 68 MCV 101.1 FL High 80.0-97.0 68 MCH 34.1 pg High 27.0-31.0 68 MCHC 33.7 g/dL 32.0-36.0 68 RDW 13.8 % 11.5-14.5 68 Platelet Count 238 K/ul 140-440 68 Neutrophils 50.6 % 50-70 68 Lymphocytes 33.0 % 20-44 68 Monocytes 9.5 % High 2-9 68 Eosinophil 5.5 % High 0-4 68 Basophil 1.4 % 0-2 68 Absolute Neutrophils 3.3 K/ul 2.05-7.63 68 Absolute Lymphocytes 2.2 K/ul 0.8-4.8 68 Absolute Monocytes 0.6 K/ul 0.1-1.0 68 Absolute Eosinophils 0.4 K/ul 0.1-0.5 68 Absolute Basophils 0.1 K/ul 0.0-0.3 68 Hematology Comment (Comm2) N/A 68 CMP 07/07/2009 Sodium 140 mmol/L 135-144 68 Potassium 4.9 mmol/L 3.6-5.2 68 Chloride 105 mmol/L 97-110 68 Carbon Dioxide 29 mmol/L 23-32 68 Glucose 95 mg/dL 70-105 68 BUN 8 mg/dL 6-22 68 Creatinine 1.2 mg/dL 0.5-1.3 68 BUN/CR 7 Ratio Low 12.0-20.0 68 Calcium 10.0 mg/dL 8.6-10.2 68, 73 Total Protein 6.5 g/dL 5.8-7.8 68 Albumin 3.8 g/dL 3.5-4.8 68 Globulin 2.7 g/dL 2.0-3.5 68 A/G Ratio 1.4 Ratio 1.0-2.2 68 Total Bilirubin 0.9 mg/dL 0.3-1.2 68 Alkaline Phosphatase 52 U/L 24-140 68 Alt 19 U/L 5-45 68 Ast 17 U/L 12-40 68 Anion Gap 11 mmol/L 8-16 68 GFR Calculation > 60 mL/min 60-175 68, 74 GFR For > 60 mL/min 60-175 68, 75 CMP 01/04/2007 Sodium 141 mmol/L 135-144 76 Potassium 4.4 mmol/L 3.6-5.2 76 Chloride 105 mmol/L 97-110 76 Carbon Dioxide 30 mmol/L 23-33 76 Glucose 86 mg/dL 70-105 76 BUN 11 mg/dL 6-22 76 Creatinine 1.2 mg/dL 0.5-1.3 76 BUN/CR 9 Ratio Low 12.0-20.0 76 Calcium 8.8 mg/dL 8.6-10.2 76, 77 Total Protein 6.4 g/dL 5.8-7.8 76 Albumin 3.8 g/dL 3.5-4.8 76 Globulin 2.6 g/dL 2.0-3.5 76 A/G Ratio 1.5 Ratio 1.0-2.2 76 Total Bilirubin 0.8 mg/dL 0.3-1.2 76, 78 Alkaline Phosphatase 56 U/L 24-140 76 Alt 18 U/L 4-45 76 Ast 20 U/L 12-40 76 Anion Gap 10 mmol/L 8-16 76 GFR Calculation > 60 mL/min 76, 79 GFR For > 60 mL/min 76, 80 CBC With Auto Diff 01/04/2007 WBC 5.7 K/ul 4.0-10.9 76 RBC 4.72 M/ul 4.70-6.10 76 Hemoglobin 16.3 GM/dl 13.5-18.0 76 Hematocrit 46.6 % 42.0-52.0 76 MCV 98.7 FL High 80.0-97.0 76 MCH 34.6 pg High 27.0-31.0 76 MCHC 35.0 g/dL 32.0-36.0 76 RDW 13.0 % 11.5-14.5 76 Platelet Count 251 K/ul 140-440 76 Neutrophils 54.7 % 50-70 76 Lymphocytes 30.8 % 20-44 76 Monocytes 10.0 % High 2-9 76 Eosinophil 3.7 % 0-4 76 Basophil 0.8 % 0-2 76 Absolute Neutrophils 3.1 K/ul 2.05-7.63 76 Absolute Lymphocytes 1.8 K/ul 0.8-4.8 76 Absolute Monocytes 0.6 K/ul 0.1-1.0 76 Absolute Eosinophils 0.2 K/ul 0.1-0.5 76 Absolute Basophils 0.0 K/ul Low 0.1-0.3 76 Lipid Panel 01/04/2007 Cholesterol 183 mg/dL 50-199 76 Triglycerides 86 mg/dL 10-150 76 HDL 41 mg/dL 29-71 76 Chol/HDL Ratio 4.5 Ratio 76 VLDL 17 mg/dL 76 LDL (Calc) 125 mg/dL 20-129 76 Laboratory test finding 01/04/2007 TSH 2.05 uIU/ml 0.34-5.60 76 PSA Free & Total -LA 01/04/2007 PSA, Total-LA 3.4 NG/ML 0.0-4.0 76 PSA, Free 0.3 NG/ML 76 PSA, % Free - LA 9 % 76, 81 Urinalysis -RL 01/18/2006 Color -LA YELLOW Appearance -LA CLEAR Specific Meno -LA 1.015 (1.003-1.030) Nitrite -LA NEGATIVE (Neg) PH Urine -LA 6 (5.0-7.5) Protein Urine-LA NEGATIVE (Neg) Glucose Urine -LA NEGATIVE (Neg) Ketone Urine -LA NEGATIVE (Neg) Urobilinogen -LA NORMAL (Norm) Bilirubin Urine -LA NEGATIVE (Neg) Blood Urine -LA NEGATIVE Urine Microscopic Only -RL 01/18/2006 Urine WBC -LA 6-10 Urine RBC -LA 0-2 Epithelial Cells -LA 1+ Bacteria -LA 1+ Mucus -LA 2+ CBC With Auto Diff 01/18/2006 WBC 8.6 K/ul 4.0-10.9 RBC 4.73 M/ul 4.70-6.10 Hemoglobin 16.3 GM/dl 13.5-18.0 Hematocrit 46.5 % 42.0-52.0 MCV 98.1 FL High 80.0-97.0 MCH 34.4 pg High 27.0-31.0 MCHC 35.0 g/dL 32.0-36.0 RDW 13.6 % 11.5-14.5 Platelet Count 272 K/ul 140-440 Neutrophils 68.5 % 50-70 Lymphocytes 18.9 % Low 20-44 Monocytes 9.9 % High 2-9 Eosinophil 2.4 % 0-4 Basophil 0.3 % 0-2 Absolute Neutrophils 5.9 K/ul 2.05-7.63 Absolute Lymphocytes 1.6 K/ul 0.8-4.8 Absolute Monocytes 0.9 K/ul 0.1-1.0 Absolute Eosinophils 0.2 K/ul 0.1-0.5 Absolute Basophils 0.0 K/ul Low 0.1-0.3 CMP 01/18/2006 Sodium 140 mmol/L 135-144 Potassium 4.0 mmol/L 3.6-5.2 Chloride 105 mmol/L 97-110 Carbon Dioxide 25 mmol/L 23-33 Glucose 90 mg/dL 70-105 BUN 14 mg/dL 6-22 Creatinine 1.2 mg/dL 0.5-1.3 BUN/CR 12 Ratio 12.0-20.0 Calcium 8.4 mg/dL Low 8.6-10.2 82 Total Protein 6.8 g/dL 5.8-7.8 Albumin 3.9 g/dL 3.5-4.8 Globulin 2.9 g/dL 2.0-3.5 A/G Ratio 1.3 Ratio 1.0-2.2 Total Bilirubin 1.5 mg/dL High 0.3-1.2 Alkaline Phosphatase 67 U/L 24-140 Alt 29 U/L 4-45 Ast 29 U/L 12-40 Anion Gap 14 mmol/L 8-16 GFR White Male 62 GFR White Female 46 GFR Black Male 75 GFR Black Female 56 GFR Guidelines 0 83 Laboratory test finding 01/18/2006 Amylase 42 U/L 36-128 PSA, Free And Total 09/18/2005 Prostate-Specific Antigen 2.2 ng/ml 0.0- 4.0 84 (PSA) -Centrex PSA, Free -[facility]rex 0.27 ng/ml PSA, Percent Free - [facility]x 12.3 % 85 CBC 06/12/2005 WBC 6.9 K/ul 4.1-10.9 76 RBC 4.92 M/ul 4.20-6.30 76 Hemoglobin 16.6 GM/dl High 12.0-16.0 76 Hematocrit 49.1 % 41.0-53.0 76 MCV 99.7 FL High 80.0-97.0 76 MCH 33.7 pg High 26.0-32.0 76 MCHC 33.8 g/dL 31.0-36.0 76 RDW 13.1 % 11.5-14.5 76 Platelet Count 305 K/ul 140-440 76 Neutrophils 48.8 % Low 50-70 76 Lymphocytes 34.7 % 20-44 76 Monocytes 9.4 % High 2-9 76 Eosinophil 6.7 % High 0-4 76 Basophil 0.4 % 0-2 76 Absolute Neutrophils 3.4 K/ul 2.05-7.63 76 Absolute Lymphocytes 2.4 K/ul 0.8-4.8 76 Absolute Monocytes 0.6 K/ul 0.1-1.0 76 Absolute Eosinophils 0.5 K/ul 0.1-0.5 76 Absolute Basophils 0.0 K/ul Low 0.1-0.3 76 Laboratory test finding 06/12/2005 PSA 3.89 ng/ml 0.00-4.00 76, 86 CMP 06/12/2005 Sodium 141 mmol/L 135-144 76 Potassium 5.0 mmol/L 3.6-5.2 76 Chloride 106 mmol/L 97-110 76 Carbon Dioxide 30 mmol/L 22-32 76 Glucose 85 mg/dL 70-105 76 BUN 12 mg/dL 6-22 76 Creatinine 1.2 mg/dL 0.5-1.3 76 BUN/CR 10 Ratio Low 12.0-20.0 76 Calcium 9.2 mg/dL 8.6-10.2 76, 87 Total Protein 6.9 g/dL 5.8-7.8 76 Albumin 3.9 g/dL 3.5-4.8 76 Globulin 3.0 g/dL 2.0-3.5 76 A/G Ratio 1.3 Ratio 1.0-2.2 76 Total Bilirubin 0.9 mg/dL 0.3-1.2 76 Ast 20 U/L 12-40 76 Alt 23 U/L 4-45 76 Alkaline Phosphatase 68 U/L 32-91 76 Anion Gap 10 mmol/L 8-16 76 Lipid Panel 06/12/2005 Cholesterol 176 mg/dL 50-199 76 Triglycerides 129 mg/dL 10-150 76 HDL 43 mg/dL 29-71 76 Chol/HDL Ratio 4.1 Ratio 76 VLDL 26 mg/dL 76 LDL (Calc) 107 mg/dL High 20-100 76 Laboratory test finding 06/12/2005 Amylase 54 U/L 36-128 76 CBC 05/18/2004 WBC 6.0 K/ul 4.1-10.9 RBC 4.72 M/ul 4.20-6.30 Hemoglobin 15.8 GM/dl 12.0-16.0 Hematocrit 46.2 % 37.0-51.0 MCV 97.9 FL High 80.0-97.0 MCH 33.4 pg High 26.0-32.0 MCHC 34.1 g/dL 31.0-36.0 RDW 12.7 % 11.5-14.5 Platelet Count 253 K/ul 140-440 Neutrophils 48.1 % Low 50-70 Lymphocytes 36.5 % 20-44 Monocytes 10.7 % High 2-9 Eosinophil 3.9 % 0-4 Basophil 0.8 % 0-2 Absolute Neutrophils 3.0 K/ul 2.05-7.63 Absolute Lymphocytes 2.2 K/ul 0.8-4.8 Absolute Monocytes 0.6 K/ul 0.1-1.0 Absolute Eosinophils 0.2 K/ul 0.1-0.5 Absolute Basophils 0.0 K/ul Low 0.1-0.3 Laboratory test finding 05/18/2004 PSA 2.23 ng/ml 0.00-4.00 88 CMP 05/18/2004 Sodium 141 mmol/L 135-145 Potassium 5.0 mmol/L 3.4-5.3 Chloride 106 mmol/L 98-111 Carbon Dioxide 30 mmol/L 22-33 Glucose 90 mg/dL 70-105 BUN 11 mg/dL 6-26 Creatinine 1.0 mg/dL 0.5-1.5 BUN/CR 11 Ratio Low 12.0-20.0 Calcium 8.8 mg/dL 8.6-10.3 Total Protein 6.8 g/dL 6.2-8.3 Albumin 3.9 g/dL 3.5-5.0 Globulin 2.9 g/dL 2.7-4.3 A/G Ratio 1.3 Ratio 1.0-2.2 Total Bilirubin 0.9 mg/dL 0.1-1.3 Ast 20 U/L 8-42 Alt 20 U/L 3-42 Alkaline Phosphatase 58 U/L 24-140 Anion Gap 10 mmol/L 10-20 CBC 09/11/2003 WBC 5.7 K/ul 4.1-10.9 RBC 4.92 M/ul 4.20-6.30 Hemoglobin 16.4 GM/dl High 12.0-16.0 Hematocrit 48.5 % 37.0-51.0 MCV 98.5 FL High 80.0-97.0 MCH 33.3 pg High 26.0-32.0 MCHC 33.8 g/dL 31.0-36.0 RDW 12.7 % 11.5-14.5 Platelet Count 228 K/ul 140-440 Neutrophils 53.5 % 50-70 Lymphocytes 31.8 % 20-44 Monocytes 9.0 % 2-9 Eosinophil 5.4 % High 0-4 Basophil 0.3 % 0-2 Absolute Neutrophils 3.1 K/ul 2.05-7.63 Absolute Lymphocytes 1.8 K/ul 0.8-4.8 Absolute Monocytes 0.5 K/ul 0.1-1.0 Absolute Eosinophils 0.3 K/ul 0.1-0.5 Absolute Basophils 0.0 K/ul Low 0.1-0.3 CMP 09/11/2003 Sodium 143 mmol/L 135-145 Potassium 4.6 mmol/L 3.4-5.3 Chloride 106 mmol/L 98-111 Carbon Dioxide 27 mmol/L 22-33 Glucose 103 mg/dL 70-105 BUN 14 mg/dL 6-26 Creatinine 1.0 mg/dL 0.5-1.5 BUN/CR 14 Ratio 12.0-20.0 Calcium 9.3 mg/dL 8.6-10.3 Total Protein 7.2 g/dL 6.2-8.3 Albumin 4.0 g/dL 3.5-5.0 Globulin 3.2 g/dL 2.7-4.3 A/G Ratio 1.3 Ratio 1.0-2.2 Total Bilirubin 1.1 mg/dL 0.1-1.3 Ast 22 U/L 8-42 Alt 20 U/L 3-42 Alkaline Phosphatase 51 U/L 24-140 Anion Gap 15 mmol/L 10-20 Lyme Disease, Western Blot Serum 05/07/2003 P93 AB. ABSENT P66 AB. ABSENT P58 AB. PRESENT P45 AB. ABSENT P41 AB. ABSENT P39 AB. ABSENT P30 AB. ABSENT P28 AB. ABSENT P23 AB. ABSENT P18 AB. ABSENT Lyme Igg WB Interp. Negative 89 P41 AB. ABSENT P39 AB. ABSENT P23 AB. ABSENT Lyme Igm WB Interp. Negative 90 CBC 05/07/2003 WBC 7.7 K/ul 4.1-10.9 RBC 4.91 M/ul 4.20-6.30 Hemoglobin 16.1 GM/dl High 12.0-16.0 Hematocrit 48.6 % 37.0-51.0 MCV 98.9 FL High 80.0-97.0 MCH 32.7 pg High 26.0-32.0 MCHC 33.1 g/dL 31.0-36.0 RDW 12.8 % 11.5-14.5 Platelet Count 380 K/ul 140-440 Laboratory test finding 05/07/2003 PSA 2.33 ng/ml 0.00-4.00 91 Basic (BMP) 05/07/2003 Sodium 140 mmol/L 135-145 Potassium 4.3 mmol/L 3.4-5.3 Chloride 109 mmol/L 98-111 Carbon Dioxide 26 mmol/L 22-33 Glucose 107 mg/dL High 70-105 BUN 13 mg/dL 6-26 Creatinine 1.0 mg/dL 0.5-1.5 BUN/CR 13 Ratio 12.0-20.0 Anion Gap 9 mmol/L Low 10-20 Calcium 8.6 mg/dL 8.6-10.3 Lipid Panel 05/07/2003 Cholesterol 167 mg/dL 50-199 Triglycerides 150 mg/dL 30-200 HDL 31 mg/dL 29-71 Chol/HDL Ratio 5.4 Ratio VLDL 30 mg/dL LDL (Calc) 106 mg/dL 20-129 Diff For Manual CBC 05/07/2003 RBC Morphology NORMAL Myelocyte 1 % Band 6 % 2-6 Neutrophil 52 % 50-70 Lymphocyte 30 % 20-44 Monocyte 5 % 2-9 Eosinophil 5 % High 0-4 Basophil 1 % 0-2 Platelet Estimate NORMAL CMP 09/06/2001 Sodium 145. mmol/L 137-145 92 Potassium 5.0 mmol/L 3.6-5.0 Chloride 106 mmol/L 98-107 Carbon Dioxide 28 mmol/L 22-30 Glucose 99. mg/dL 75-110 BUN 12. mg/dL 9-21 Creatinine, Serum 1.0 mg/dL 0.8-1.5 BUN/CR Ratio 12.0 Ratio 12-20 Calcium 8.8 mg/dL 8.7-10.5 Total Protein 6.7 g/dL 6.3-8.2 Albumin 3.3 g/dL Low 3.5-5.0 Globulin 3.4 g/dL 2.7-4.3 A/G Ratio 1.0 1.0-2.2 Total Bilirubin .7 mg/dL 0.2-1.3 Ast 31. U/L 17-59 Alt 55. U/L 21-72 Alkaline Phosphatase 53. U/L 38-126 CBC 09/06/2001 WBC 5.1 K/ul 4.1-10.9 RBC 4.77 M/ul 4.2-6.3 Hemoglobin 15.7 GM/dl 12.0-16.0 Hematocrit 47.3 % 37.0-51.0 MCV 99.2 FL High 80-97 MCH 33.0 pg High 26.0-32.0 MCHC 33.3 g/dL 31.0-36.0 RDW 12.4 % 11.5-14.5 Platelet Count 266 K/ul 140-440 Neutrophils 47.1 % Low 50-70 Lymphocytes 36.9 % 20-44 Monocytes 11.7 % High 2-9 Eosinophil 3.9 % 0-4 Basophil 0.4 % 0-2 Absolute Neutrophils 2.4 K/ul 2.05-7.63 Absolute Lymphocytes 1.9 K/ul 0.8-4.8 Absolute Monocytes 0.6 K/ul 0.1-1.0 Absolute Eosinophils 0.2 K/ul 0.1-0.5 Absolute Basophils 0.0 K/ul Low 0.1-0.3 Laboratory test finding 07/29/2001 Cholesterol 196. mg/dL 50-199 PSA 1.4 ng/ml 0.0-4.0 93 CMP 07/29/2001 Sodium 142. mmol/L 137-145 Potassium 4.2 mmol/L 3.6-5.0 Chloride 103. mmol/L 98-107 Carbon Dioxide 28. mmol/L 22-30 Glucose 81. mg/dL 75-110 BUN 10. mg/dL 9-21 Creatinine, Serum .8 mg/dL 0.8-1.5 BUN/CR Ratio 11.7 Ratio Low 12-20 Calcium 8.0 mg/dL Low 8.7-10.5 Total Protein 6.8 g/dL 6.3-8.2 Albumin 3.7 g/dL 3.5-5.0 Globulin 3.1 g/dL 2.7-4.3 A/G Ratio 1.2 1.0-2.2 Total Bilirubin .4 mg/dL 0.2-1.3 Ast 19. U/L 17-59 Alt 26. U/L 21-72 Alkaline Phosphatase 60. U/L 38-126 CBC 07/29/2001 WBC 6.8 K/ul 4.1-10.9 RBC 4.67 M/ul 4.2-6.3 Hemoglobin 15.2 GM/dl 12.0-16.0 Hematocrit 45.8 % 37.0-51.0 MCV 98.1 FL High 80-97 MCH 32.5 pg High 26.0-32.0 MCHC 33.1 g/dL 31.0-36.0 RDW 12.4 % 11.5-14.5 Platelet Count 267 K/ul 140-440 Neutrophils 52.5 % 50-70 Lymphocytes 29.3 % 20-44 Monocytes 11.1 % High 2-9 Eosinophil 6.5 % High 0-4 Basophil 0.6 % 0-2 Absolute Neutrophils 3.6 K/ul 2.05-7.63 Absolute Lymphocytes 2.0 K/ul 0.8-4.8 Absolute Monocytes 0.8 K/ul 0.1-1.0 Absolute Eosinophils 0.4 K/ul 0.1-0.5 Absolute Basophils 0.0 K/ul Low 0.1-0.3 1 Testing performed by graphite furnace atomic absorption spectroscopy. Information for health care providers on lead poisoning prevention and management is available on the [facility] website. 2 Updated reference range on new analyzer 3 Updated reference range on new analyzer 4 Concerning GFR Guidelines for Americans: Normal function or mild renal disease, if clinically at risk: >/=60 mL/min Moderately decreased: 30-59 Severely decreased: 15-29 Renal failure: <15 5 Concerning GFR Guidelines: Normal function or mild renal disease, if clinically at risk: >/=60 mL/min Moderately decreased: 30-59 Severely decreased: 15-29 Renal failure: <15 Glomerular Filtration Rate (GFR) is estimated based on the MDRD equation, which assumes a steady state for creatinine as recommended by the National Kidney Disease Education Program in conjunction with the National Institutes of Health and the National Kidney Foundation. Clinical conditions in which it may be necessary to measure GFR by using clearance methods include extremes of age and body size, severe malnutrition or obesity, diseases of skeletal muscle, paraplegia or quadriplegia, vegetarian diet, rapidly changing kidney function, and calculation of the dose of potentially toxic drugs that are excreted by the kidneys. 6 Updated reference range on new analyzer 7 Per NCEP ATP III Guidelines: Results lower than 40 mg/dL are suggestive of increased risk for coronary artery disease. Results > or=to 60 mg/dL are considered a negative risk factor. 8 Per NCEP ATP III Guidelines: Normal Population <130 Patients with medical conditions: CHD/DM Optimal: <100 Borderline high: 130-159 High: 160-189 Very high: >189 9 Beginning 10/01/06 PSA values assayed at [facility] uses chemiluminescence methodology manufactured by [employer] for use on the DXI analyzer. Values obtained with different assay methods or kits can not be used interchangeably. Serum PSA measurement is not an absolute test for malignancy. The PSA value should be used in conjunction with information available from clinical evaluation and other diagnostic procedures. 10 2.91 Results verified by repeat analysis 11 7.5 Results verified by repeat analysis 12 24.2 Results verified by repeat analysis 13 Concerning GFR Guidelines for Americans: Normal function or mild renal disease, if clinically at risk: >/=60 mL/min Moderately decreased: 30-59 Severely decreased: 15-29 Renal failure: <15 14 Concerning GFR Guidelines: Normal function or mild renal disease, if clinically at risk: >/=60 mL/min Moderately decreased: 30-59 Severely decreased: 15-29 Renal failure: <15 Glomerular Filtration Rate (GFR) is estimated based on the MDRD equation, which assumes a steady state for creatinine as recommended by the National Kidney Disease Education Program in conjunction with the National Institutes of Health and the National Kidney Foundation. Clinical conditions in which it may be necessary to measure GFR by using clearance methods include extremes of age and body size, severe malnutrition or obesity, diseases of skeletal muscle, paraplegia or quadriplegia, vegetarian diet, rapidly changing kidney function, and calculation of the dose of potentially toxic drugs that are excreted by the kidneys. 15 Per NCEP ATP III Guidelines: Results lower than 40 mg/dL are suggestive of increased risk for coronary artery disease. Results > or=to 60 mg/dL are considered a negative risk factor. 16 Per NCEP ATP III Guidelines: Normal Population <130 Patients with medical conditions: CHD/DM Optimal: <100 Borderline high: 130-159 High: 160-189 Very high: >189 17 Beginning 10/01/06 PSA values assayed at [facility] uses chemiluminescence methodology manufactured by [employer] for use on the DXI analyzer. Values obtained with different assay methods or kits can not be used interchangeably. Serum PSA measurement is not an absolute test for malignancy. The PSA value should be used in conjunction with information available from clinical evaluation and other diagnostic procedures. 18 Microbiology results SOURCE URINE FINAL RESULT No growth 19 Concerning GFR Guidelines for Americans: Normal function or mild renal disease, if clinically at risk: >/=60 mL/min Moderately decreased: 30-59 Severely decreased: 15-29 Renal failure: <15 20 Concerning GFR Guidelines: Normal function or mild renal disease, if clinically at risk: >/=60 mL/min Moderately decreased: 30-59 Severely decreased: 15-29 Renal failure: <15 Glomerular Filtration Rate (GFR) is estimated based on the MDRD equation, which assumes a steady state for creatinine as recommended by the National Kidney Disease Education Program in conjunction with the National Institutes of Health and the National Kidney Foundation. Clinical conditions in which it may be necessary to measure GFR by using clearance methods include extremes of age and body size, severe malnutrition or obesity, diseases of skeletal muscle, paraplegia or quadriplegia, vegetarian diet, rapidly changing kidney function, and calculation of the dose of potentially toxic drugs that are excreted by the kidneys. 21 Per NCEP ATP III Guidelines: Results lower than 40 mg/dL are suggestive of increased risk for coronary artery disease. Results > or=to 60 mg/dL are considered a negative risk factor. 22 Per NCEP ATP III Guidelines: Normal Population <130 Patients with medical conditions: CHD/DM Optimal: <100 Borderline high: 130-159 High: 160-189 Very high: >189 23 10.860 Results verified by repeat analysis Beginning 10/01/06 PSA values assayed at [facility] uses an EIA methodology manufactured by [employer] for use on the DXI analyzer. Values obtained with different assay methods or kits can not be used interchangeably. Serum PSA measurement is not an absolute test for malignancy. The PSA value should be used in conjunction with information available from clinical evaluation and other diagnostic procedures. 24 This sample is drawn by: 25 Unless otherwise specified, testing performed by [facility] [address] [place] [id number] 26 Per NCEP ATP III Guidelines: Results lower than 40 mg/dL are suggestive of increased risk for coronary artery disease. Results > or=to 60 mg/dL are considered a negative risk factor. 27 Per NCEP ATP III Guidelines: Normal Population <130 Patients with medical conditions: CHD/DM Optimal: <100 Borderline high: 130-159 High: 160-189 Very high: >189 28 Concerning GFR Guidelines for Americans: Normal function or mild renal disease, if clinically at risk: >/=60 mL/min Moderately decreased: 30-59 Severely decreased: 15-29 Renal failure: <15 29 Concerning GFR Guidelines: Normal function or mild renal disease, if clinically at risk: >/=60 mL/min Moderately decreased: 30-59 Severely decreased: 15-29 Renal failure: <15 Glomerular Filtration Rate (GFR) is estimated based on the MDRD equation, which assumes a steady state for creatinine as recommended by the National Kidney Disease Education Program in conjunction with the National Institutes of Health and the National Kidney Foundation. Clinical conditions in which it may be necessary to measure GFR by using clearance methods include extremes of age and body size, severe malnutrition or obesity, diseases of skeletal muscle, paraplegia or quadriplegia, vegetarian diet, rapidly changing kidney function, and calculation of the dose of potentially toxic drugs that are excreted by the kidneys. 30 This sample is drawn by:[facility] 31 Concerning GFR Guidelines for Americans: Normal function or mild renal disease, if clinically at risk: >/=60 mL/min Moderately decreased: 30-59 Severely decreased: 15-29 Renal failure: <15 32 Concerning GFR Guidelines: Normal function or mild renal disease, if clinically at risk: >/=60 mL/min Moderately decreased: 30-59 Severely decreased: 15-29 Renal failure: <15 Glomerular Filtration Rate (GFR) is estimated based on the MDRD equation, which assumes a steady state for creatinine as recommended by the National Kidney Disease Education Program in conjunction with the National Institutes of Health and the National Kidney Foundation. Clinical conditions in which it may be necessary to measure GFR by using clearance methods include extremes of age and body size, severe malnutrition or obesity, diseases of skeletal muscle, paraplegia or quadriplegia, vegetarian diet, rapidly changing kidney function, and calculation of the dose of potentially toxic drugs that are excreted by the kidneys. 33 Per NCEP ATP III Guidelines: Results lower than 40 mg/dL are suggestive of increased risk for coronary artery disease. Results > or=to 60 mg/dL are considered a negative risk factor. 34 Per NCEP ATP III Guidelines: Normal Population <130 Patients with medical conditions: CHD/DM Optimal: <100 Borderline high: 130-159 High: 160-189 Very high: >189 35 Unless otherwise specified, testing performed by [facility] [address] [place] [address] 36 This sample is drawn by:CT 37 Microbiology results SOURCE URINE FINAL RESULT No growth 38 Concerning GFR Guidelines for Americans: Normal function or mild renal disease, if clinically at risk: >/=60 mL/min Moderately decreased: 30-59 Severely decreased: 15-29 Renal failure: <15 39 Concerning GFR Guidelines: Normal function or mild renal disease, if clinically at risk: >/=60 mL/min Moderately decreased: 30-59 Severely decreased: 15-29 Renal failure: <15 Glomerular Filtration Rate (GFR) is estimated based on the MDRD equation, which assumes a steady state for creatinine as recommended by the National Kidney Disease Education Program in conjunction with the National Institutes of Health and the National Kidney Foundation. Clinical conditions in which it may be necessary to measure GFR by using clearance methods include extremes of age and body size, severe malnutrition or obesity, diseases of skeletal muscle, paraplegia or quadriplegia, vegetarian diet, rapidly changing kidney function, and calculation of the dose of potentially toxic drugs that are excreted by the kidneys. 40 Unless otherwise specified, testing performed by [facility] [place] [address] 41 Concerning GFR Guidelines for Americans: Normal function or mild renal disease, if clinically at risk: >/=60 mL/min Moderately decreased: 30-59 Severely decreased: 15-29 Renal failure: <15 42 Concerning GFR Guidelines: Normal function or mild renal disease, if clinically at risk: >/=60 mL/min Moderately decreased: 30-59 Severely decreased: 15-29 Renal failure: <15 Glomerular Filtration Rate (GFR) is estimated based on the MDRD equation, which assumes a steady state for creatinine as recommended by the National Kidney Disease Education Program in conjunction with the National Institutes of Health and the National Kidney Foundation. Clinical conditions in which it may be necessary to measure GFR by using clearance methods include extremes of age and body size, severe malnutrition or obesity, diseases of skeletal muscle, paraplegia or quadriplegia, vegetarian diet, rapidly changing kidney function, and calculation of the dose of potentially toxic drugs that are excreted by the kidneys. 43 Unless otherwise specified, testing performed by [facility] [place] [address] 44 Microbiology results SOURCE URINE RESULT No growth 45 Unless otherwise specified, testing performed by [facility] [place] [address] 46 Unless otherwise specified, testing performed by [facility] [place] [address] 47 Unless otherwise specified, testing performed by [facility] [place] [address] 48 This sample is drawn by:MM 49 Concerning GFR Guidelines: Normal function or mild renal disease, if clinically at risk: >/=60 mL/min Moderately decreased: 30-59 Severely decreased: 15-29 Renal failure: <15 Glomerular Filtration Rate (GFR) is estimated based on the MDRD equation, which assumes a steady state for creatinine as recommended by the National Kidney Disease Education Program in conjunction with the National Institutes of Health and the National Kidney Foundation. Clinical conditions in which it may be necessary to measure GFR by using clearance methods include extremes of age and body size, severe malnutrition or obesity, diseases of skeletal muscle, paraplegia or quadriplegia, vegetarian diet, rapidly changing kidney function, and calculation of the dose of potentially toxic drugs that are excreted by the kidneys. 50 Concerning GFR Guidelines for Americans: Normal function or mild renal disease, if clinically at risk: >/=60 mL/min Moderately decreased: 30-59 Severely decreased: 15-29 Renal failure: <15 51 Per NCEP ATP III Guidelines: Results lower than 40 mg/dL are suggestive of increased risk for coronary artery disease. Results > or=to 60 mg/dL are considered a negative risk factor. 52 Per NCEP ATP III Guidelines: Optimal: <100 Near optimal: 100-129 Borderline high: 130-159 High: 160-189 Very high: >189 53 Unless otherwise specified, testing performed by [facility] [place] [address] 54 Unless otherwise specified, testing [place] [address] 55 This sample is drawn by:CT 56 % FREE PSA PROBABILITY OF CANCER 0 - 10% 56% 10 - 15% 28% 15 - 20% 20% 20 - 25% 16% GREATER THAN 25% 8% THE FREE PSA PERCENTAGE IS AN AID IN DISTINGUISHING PROSTATE CANCER FROM BENIGN PROSTATIC CONDITIONS IN MEN AGE 50 AND OLDER WITH A TOTAL PSA BETWEEN 3 AND 10 NG/ML AND NEGATIVE DIGITAL RECTAL EXAMINATION FINDINGS. PROSTATIC BIOPSY IS REQUIRED FOR THE DIAGNOSIS OF CANCER. (See: DARIANA 1998; 279: [id number]) METHOD USED TO ASSAY BOTH FREE PSA AND TOTAL PSA IS ALBERT ACCESS IMMUNOASSAY SYSTEM [employer] FREE PSA AND TOTAL PSA. RESULTS SHOULD NOT BE INTERPRETED ABSOLUTE EVIDENCE FOR THE PRESENCE OR ABSENCE OF MALIGNANT DISEASE. VALUES OBTAINED WITH DIFFERENT ASSAY METHODS OR KITS CANNOT BE USED INTERCHANGEABLY. Unless otherwise specified, testing performed by [facility] [address] [place] [id number] 57 This sample is drawn by:MM 58 Effective 10/05/08, the analyzer and reagent package for the prothombin times have changed. The equivalent protime result in "seconds: will be higher by this new assay package. 59 Due to a change in method and reagent on 10/05/08 the mean of the normal range has changed slightly. Since this is used in the calculation of the INR, the resulting INR may be slightly different than the patient's previous history. IT MUST BE STRESSED THAT THE INR IS SPECIFICALLY INTENDED FOR ASSESSING PATIENTS STABILIZED ON LONG-TERM ANTICOAGULANT THERAPY. THE RECOMMENDED THERAPEUTIC RANGE FOR: MOST PATIENTS ON COUMADIN INR: 2.0 - 3.0 PROPHYLAXIS/TREATMENT OF VENOUS THROMBOSIS PROPHYLAXIS/TREATMENT OF PULMONARY EMBOLIS PROSTHETIC HEART VALVES INR: 2.5 - 3.5 RECURRENT SYSTEMIC EMBOLISM 60 FASTING This sample is drawn by:CT 61 The difference between the most recent result of 10.0 and the current result of 9.3 exceeds the absolute delta value of 0.3 as defined for this test. 62 Concerning GFR GUIDELINES: Normal Function or Mild Renal Disease, if clinically at risk: >/=60mL/min Moderately decreased: 30-59 Severely decreased: 15-29 Renal Failure: <15 Glomerular Filtration Rate (GFR) is estimated based on the MDRD equation, which assumes a steady state for creatinine as recommended by the National Kidney Disease Education Program in conjunction with the National Institutes of Health and the National Kidney Foundation. Clinical conditions in which it may be necessary to measure GFR by using clearance methods include extremes of age and body size, severe malnutrition or obesity, diseases of skeletal muscle, paraplegia or quadriplegia, vegetarian diet, rapidly changing kidney function, and calculation of the dose of potentially toxic drugs that are excreted by the kidneys. 63 Concerning GFR GUIDELINES: Normal Function or Mild Renal Disease, if clinically at risk: >/=60mL/min Moderately decreased: 30-59 Severely decreased: 15-29 Renal Failure: <15 64 PER NCEP ATP III GUIDELINES: RESULTS LOWER THAN 40 MG/DL ARE SUGGESTIVE OF INCREASED RISK FOR CORONARY ARTERY DISEASE. RESULTS > OR=TO 60 MG/DL ARE CONSIDERED A NEGATIVE RISK FACTOR. 65 INTERPRETATION OF CHOL-HDL RATIO CHD RISK FEMALE MALE VERY HIGH >8.3 >14.3 HIGH 5.6 - 8.3 6.7 - 14.3 AVERAGE 3.7 - 5.6 4.0 - 6.7 BELOW AVERAGE 2.5 - 3.7 2.7 - 4.0 PROTECTED <2.5 <2.7 66 PER NCEP ATP III GUIDELINES: OPTIMAL: <100 NEAR OPTIMAL: 100 - 129 BORDERLINE HIGH: 130 - 159 HIGH: 160 - 189 VERY HIGH: >189 67 BEGINNING 10/01/06, PSA VALUES ASSAYED AT [facility] USES AN EIA METHODOLOGY MANUFACTURED BY [employer] FOR USE ON THE DXI ANALYZER. VALUES OBTAINED WITH DIFFERENT ASSAY METHODS OR KITS CAN NOT BE USED INTERCHANGEABLY. SERUM PSA MEASUREMENT IS NOT AN ABSOLUTE TEST FOR MALIGNANCY, THE PSA VALUE SHOULD BE USED IN CONJUNCTION WITH INFORMATION AVAILABLE FROM CLINICAL EVALUATION AND OTHER DIAGNOSTIC PROCEDURES. 68 FASTING This sample is drawn by: DB 69 BEGINNING 10/01/06, PSA VALUES ASSAYED AT [facility] USES AN EIA METHODOLOGY MANUFACTURED BY [employer] FOR USE ON THE DXI ANALYZER. VALUES OBTAINED WITH DIFFERENT ASSAY METHODS OR KITS CAN NOT BE USED INTERCHANGEABLY. SERUM PSA MEASUREMENT IS NOT AN ABSOLUTE TEST FOR MALIGNANCY, THE PSA VALUE SHOULD BE USED IN CONJUNCTION WITH INFORMATION AVAILABLE FROM CLINICAL EVALUATION AND OTHER DIAGNOSTIC PROCEDURES. 70 PER NCEP ATP III GUIDELINES: RESULTS LOWER THAN 40 MG/DL ARE SUGGESTIVE OF INCREASED RISK FOR CORONARY ARTERY DISEASE. RESULTS > OR=TO 60 MG/DL ARE CONSIDERED A NEGATIVE RISK FACTOR. 71 PER NCEP ATP III GUIDELINES: OPTIMAL: <100 NEAR OPTIMAL: 100 - 129 BORDERLINE HIGH: 130 - 159 HIGH: 160 - 189 VERY HIGH: >189 72 INTERPRETATION OF CHOL-HDL RATIO CHD RISK FEMALE MALE VERY HIGH >8.3 >14.3 HIGH 5.6 - 8.3 6.7 - 14.3 AVERAGE 3.7 - 5.6 4.0 - 6.7 BELOW AVERAGE 2.5 - 3.7 2.7 - 4.0 PROTECTED <2.5 <2.7 73 The difference between the most recent result of 8.8 and the current result of 10.0 exceeds the absolute delta value of 0.3 as defined for this test. 74 Concerning GFR GUIDELINES: Normal Function or Mild Renal Disease, if clinically at risk: >/=60mL/min Moderately decreased: 30-59 Severely decreased: 15-29 Renal Failure: <15 Glomerular Filtration Rate (GFR) is estimated based on the MDRD equation, which assumes a steady state for creatinine as recommended by the National Kidney Disease Education Program in conjunction with the National Institutes of Health and the National Kidney Foundation. Clinical conditions in which it may be necessary to measure GFR by using clearance methods include extremes of age and body size, severe malnutrition or obesity, diseases of skeletal muscle, paraplegia or quadriplegia, vegetarian diet, rapidly changing kidney function, and calculation of the dose of potentially toxic drugs that are excreted by the kidneys. 75 Concerning GFR GUIDELINES: Normal Function or Mild Renal Disease, if clinically at risk: >/=60mL/min Moderately decreased: 30-59 Severely decreased: 15-29 Renal Failure: <15 76 FASTING 77 The difference between the most recent result of 8.4 and the current result of 8.8 exceeds the absolute delta value of 0.3 as defined for this test. 78 The difference between the most recent result of 1.5 and the current result of 0.8 exceeds the absolute delta value of 0.3 as defined for this test. 79 Concerning GFR GUIDELINES: Normal Function or Mild Renal Disease, if clinically at risk: >/=60mL/min Moderately decreased: 30-59 Severely decreased: 15-29 Renal Failure: <15 Glomerular Filtration Rate (GFR) is estimated based on the MDRD equation, which assumes a steady state for creatinine as recommended by the National Kidney Disease Education Program in conjunction with the National Institutes of Health and the National Kidney Foundation. Clinical conditions in which it may be necessary to measure GFR by using clearance methods include extremes of age and body size, severe malnutrition or obesity, diseases of skeletal muscle, paraplegia or quadriplegia, vegetarian diet, rapidly changing kidney function, and calculation of the dose of potentially toxic drugs that are excreted by the kidneys. 80 Concerning GFR GUIDELINES: Normal Function or Mild Renal Disease, if clinically at risk: >/=60mL/min Moderately decreased: 30-59 Severely decreased: 15-29 Renal Failure: <15 81 % FREE PSA PROBABILITY OF CANCER 0 - 10% 56% 10 - 15% 28% 15 - 20% 20% 20 - 25% 16% GREATER THAN 25% 8% THE FREE PSA PERCENTAGE IS AN AID IN DISTINGUISHING PROSTATE CANCER FROM BENIGN PROSTATIC CONDITIONS IN MEN AGE 50 AND OLDER WITH A TOTAL PSA BETWEEN 3 AND 10 NG/ML AND NEGATIVE DIGITAL RECTAL EXAMINATION FINDINGS. PROSTATIC BIOPSY IS REQUIRED FOR THE DIAGNOSIS OF CANCER. (See: DARIANA 1998; 279: [id number]) METHOD USED TO ASSAY BOTH FREE PSA AND TOTAL PSA IS ALBERT ACCESS IMMUNOASSAY SYSTEM [employer] FREE PSA AND TOTAL PSA. RESULTS SHOULD NOT BE INTERPRETED ABSOLUTE EVIDENCE FOR THE PRESENCE OR ABSENCE OF MALIGNANT DISEASE. VALUES OBTAINED WITH DIFFERENT ASSAY METHODS OR KITS CANNOT BE USED INTERCHANGEABLY. FREE PSA % GUIDELINES: %FREE PSA PROBABILITY OF CANCER 0-10% 56% 10-15% 28% 15-20% 20% 20-25% 16% GREATER THAN 25% 8% METHOD USED FOR FREE AND TOTAL PSA IS THE ALBERT ACCESS IMMUNOASSAY SYSTEM HYBRITECH FREE PSA AND TOTAL PSA. RESULT SHOULD NOT BE INTERPRETED ABSOLUTE EVIDENCE FOR THE PRESENCE OR ABSENCE OF MALIGNA NT DISEASE. VALUES OBTAINED WITH DIFFERENT ASSAY METHODS OR KITS CANNOT BE USED INTERCHANGEABLY. 82 The difference between the most recent result of 9.2 and the current result of 8.4 exceeds the absolute delta value of 0.3 as defined for this test. 83 Normal Function or Mild Renal Disease, if clinically at risk: >/=60 mL/min Moderately decreased: 30-59 Severely decreased: 15-29 Renal Failure: <15 Glomerular Filtration Rate (GFR) is estimated based on the MDRD equation, which assumes a steady state for creatinine as recommended by the National Kidney Disease Education Program in conjunction with the National Institutes of Health and the National Kidney Foundation. Clinical conditions in which it may be necessary to measure GFR by using clearance methods include extremes of age and body size, severe malnutrition or obesity, diseases of skeletal muscle, paraplegia or quadriplegia, vegetarian diet, rapidly changing kidney function, and calculation of the dose of potentially toxic drugs that are excreted by the kidneys. 84 . Results obtained using Gomez MEIA methodology. Serum PSA results should be used only in conjunction with information available from the clinical evaluation of the patient and other diagnostic procedures. Values obtained with different assay methods or kits cannot be used interchangeably. . 85 . Percent Free PSA Value Range <10 10-15 15-20 20-26 >26 Probability of Prostate Cancer 67.9% 50.0% 32.1% 18.3% 9.6% 86 PSA VALUES ASSAYED AT [employer] USES AN EIA METHODOLOGY MANUFACTURED BY [employer] FOR USE ON THE NEXIA ANALYZER. VALUES OBTAINED WITH DIFFERENT ASSAY METHODS OR KITS CAN NOT BE USED INT ERCHANGEABLY. SERUM PSA MEASUREMENT IS NOT AN ABSOLUTE TEST FOR MALIGNANCY, THE PSA VALUE SHOULD BE USED IN CONJUNCTION WITH INFORMATION AVAILABLE FROM CLINICAL EVALUATION AND OTHER DIAGNOSTIC PROCEDURES. 87 The difference between the most recent result of 8.8 and the current result of 9.2 exceeds the absolute delta value of 0.3 as defined for this test. 88 PSA VALUES ASSAYED AT [facility] USES AN EIA METHODOLOGY MANUFACTURED BY [employer] FOR USE ON THE NEXIA ANALYZER. VALUES OBTAINED WITH DIFFERENT ASSAY METHODS OR KITS CAN NOT BE USED INT ERCHANGEABLY. SERUM PSA MEASUREMENT IS NOT AN ABSOLUTE TEST FOR MALIGNANCY, THE PSA VALUE SHOULD BE USED IN CONJUNCTION WITH INFORMATION AVAILABLE FROM CLINICAL EVALUATION AND OTHER DIAGNOSTIC PROCEDURES. 89 Pos: 5 of the following Borrelia-specific bands: 18,23,28,30,39 41,45,58,66, and 93. Neg: No bands or banding patterns which do not meet positive criteria. . 90 Note: An equivocal or pos- Pos: 2 of the following itive EIA result followed bands: 23,39, or 41. by a negative Western Blot Neg: No bands or banding result is considered NEGATIVE. patterns which do An equivocal or positive EIA not meet positive result followed by a positive criteria. Western Blot is considered POSITIVE by the CDC. . Criteria for positivity are those recommended by CDC/ASTPHLD. p23=Osp C, o22=waygxokfz. . 91 PSA VALUES ASSAYED AT [facility] USES AN EIA METHODOLOGY MANUFACTERED BY [employer] FOR USE ON THE NEXIA ANALYZER. VALUES OBTAINED WITH DIFFERENT ASSAY METHODS OR KITS CAN NOT BE USED INT ERCHANGEABLY. SERUM PSA MEASUREMENT IS NOT AN ABSOLUTE TEST FOR MALIGNANCY, THE PSA VALUE SHOULD BE USED IN CONJUNCTION WITH INFORMATION AVAILABLE FROM CLINICAL EVALUATION AND OTHER DIAGNOSTIC PROCEDURES. 92 PENDING PENDING PENDING PENDING PENDING PENDING PENDING PENDING PENDING PENDING PENDING PENDING PENDING PENDING PENDING PENDING PENDING 93 PSA VALUES ASSAYED AT [facility] USES AN EIA METHODOLGY MANUFACTURED BY [employer] FOR USE ON THE IMMUNO 1 ANALYZER. VALUES OBTAINED WITH DIFFERENT ASSAY METHODS OR KITS CAN NOT BE USED INTERCHANGEABLY. SERUM PSA MEASUREMENT IS NOT AN ABSOLUTE TEST FOR MALIGNANCY. THE PSA VALUE SHOULD BE USED IN CONJUCTION WITH INFORMATION AVAILABLE FROM CLINICAL EVALUATION AND OTHER DIAGNOSTIC PROCEDURES. Procedures Date CPT Code Description Status 04/15/2018 63957 Spirometry /PFT With And Without Bronchodialator Completed (Bronchospasm) 03/11/2018 92559 Spirometry /PFT With And Without Bronchodialator Completed (Bronchospasm) 05/31/2017 40717 Electrocardiogram Complete Completed 05/29/2016 88270 Electrocardiogram Complete Completed 08/19/2015 76709 Measure Blood Oxygen Level Single Determination Completed 09/22/2014 56153 Airway Inhalation Treatment Completed 05/25/2014 35972 Electrocardiogram Complete Completed 04/15/2012 60798 Electrocardiogram Complete Completed 07/03/2011 10615 Electrocardiogram Complete Completed 07/20/2010 74520 Electrocardiogram Complete Completed 11/08/2009 31953 Remove Impacted Cerumen Requiring Instrumentation Completed 09/20/2009 09960 Admin Of Inj (Therapeutic Phrophylactic Or Diagnostic Completed Subq Inj 07/20/2009 23715 Admin Of Inj (Therapeutic Phrophylactic Or Diagnostic Completed Subq Inj 06/30/2009 49630 Electrocardiogram Complete Completed 01/04/2007 87647 Electrocardiogram Complete Completed 10/05/2006 83755 Admin Of Inj (Therapeutic,Prophylactic Or Diagnostic Completed Subq Or Intr 06/12/2005 66998 Electrocardiogram Interpretation & Report Only Completed 06/12/2005 48495 Electrocardiogram Tracing Completed 10/17/2004 11958 Remove Impacted Cerumen Requiring Instrumentation Completed 06/10/2004 97645 Duplex Scan Extracranial Arteries, Complete Bilateral Completed Study 09/11/2003 56618 Electrocardiogram Complete Completed 07/26/2001 62229 Electrocardiogram Complete Completed 05/28/2000 29717 Sigmoidoscopy Diagnostic Completed 05/04/2000 77586 Electrocardiogram Complete Completed Encounters Type Date Location Provider CPT E/M Dx Office Visit 03/11/2018 10:00[place] [address] J15.9 I10 I48.2 G47.33 I45.10 N40.0 D53.9 M79.662 K21.9 R41.3 R06.02 J44.9 Z68.27 Office Visit 01/17/2018 11:00[place] [address] R04.2 Z68.27 Office Visit 08/03/2017 11:00[place] [address] R05 J45.20 Office Visit 07/23/2017 1:00[place] [address] I48.2 G47.33 R41.3 R23.3 Office Visit 07/11/2017 2:20p Katina Lorenzo RN [facility] 83347 M79.602 R23.3 D50.9 Office Visit 07/04/2017 10:40[place] [address] J06.9 G47.33 Office Visit 05/31/2017 10:00a Ian Pearson PA G0439 Z00.01 I48.2 G47.33 N40.0 R97.20 E55.9 Z86.010 I45.10 K92.2 J45.20 R41.3 Z23 E78.2 Office Visit 10/30/2016 2:00[place] [address] K92.2 D64.89 I48.1 Office Visit 09/07/2016 2:00[place] [address] J45.20 R05 Office Visit 05/29/2016 1:00p Ian Pearson PA G0439 Z00.01 I10 I48.2 J44.9 G47.33 N40.0 R97.20 E55.9 Z86.010 I45.10 Z23 R68.2 Office Visit 11/08/2015 9:00[place] [address] L03.115 Office Visit 11/01/2015 9:40[place] [address] L03.115 I73.9 Office Visit 09/08/2015 1:40p Katina Lorenzo RN [facility] 89854 K59.00 Office Visit 08/19/2015 3:00[place] [address] E55.9 N40.0 D51.9 I10 G47.33 I48.2 R41.3 J45.909 Office Visit 05/26/2015 1:00p Scarlet Ruibn MD G0439 Z23 E78.0 D51.9 N40.0 E55.9 I10 I48.91 R97.2 R41.3 J45.909 G47.33 Z00.01 Office Visit 11/09/2014 11:00[place] [address] 427.31 401.1 584.9 V54.13 780.93 600.00 496 530.81 Office Visit 09/22/2014 9:40[place] [address] 786.09 Office Visit 08/11/2014 10:40[place] [address] 428.0 427.31 564.09 401.1 V54.13 584.9 719.47 281.1 272.2 Office Visit 06/03/2014 9:40a Katina Lorenzo RN [facility] 33930 380.4 Office Visit 05/25/2014 10:20[place] [address] V04.81 V04.89 V70.0 380.4 401.1 427.31 600.00 V77.1 V76.44 780.93 V03.82 Office Visit 11/14/2013 1:00p Katina Lorenzo RN [facility] 02770 465.9 786.2 461.0 Office Visit 10/27/2013 1:00[place] [address] 478.9 562.12 786.09 709.3 Office Visit 10/24/2013 11:00a Katina Lorenzo RN [facility] 51265 786.2 Office Visit 09/15/2013 9:30[place] [address] 789.9 599.70 788.99 Office Visit 06/02/2013 10:45[place] [address] 427.31 401.1 272.2 428.0 790.93 V04.81 Office Visit 12/23/2012 10:00[place] [address] 478.20 Office Visit 09/09/2012 9:30[place] [address] 427.31 401.1 272.2 428.0 719.47 Office Visit 05/27/2012 11:15[place] [address] 427.31 428.0 401.1 272.2 790.93 V04.81 Office Visit 04/15/2012 8:30[place] [address] 427.31 428.0 401.1 272.2 Office Visit 12/27/2011 4:15p [place] [address] 923.03 Office Visit 09/11/2011 9:45[place] [address] 599.70 427.31 790.93 Office Visit 07/03/2011 11:30[place] [address] 427.31 401.1 272.2 426.4 790.93 V04.81 Office Visit 02/08/2011 10:20a Katina Lorenzo RN [facility] 23238 401.1 427.31 564.01 Office Visit 11/28/2010 10:30[place] [address] 427.31 401.1 790.93 Office Visit 10/17/2010 11:15[place] [address] 427.31 401.1 790.93 Office Visit 09/20/2010 3:00p Laurel Barragan 87794 448.1 906.0 Office Visit 09/12/2010 10:00[place] [address] 427.31 790.93 Office Visit 07/20/2010 3:15p [place] [address] V70.0 427.31 786.05 401.1 426.4 600.00 715.94 719.41 780.93 272.2 Office Visit 06/01/2010 11:00a Katina Lorenzo RN [facility] 52506 729.5 V04.81 Office Visit 05/30/2010 12:30p Katina Lorenzo, [place] [facility] 65288 729.5 Office Visit 11/08/2009 2:45[place] [address] 461.0 380.4 Office Visit 09/16/2009 9:30a Katina Lorenzo RN [facility] [employer] 33114 893.0 Office Visit 06/30/2009 3:30[place] [address] 427.89 426.4 562.12 715.94 780.93 401.1 600.00 727.03 272.2 Office Visit 04/16/2009 1:50p La[facility] Nurses Schedule [place] 65099 739.6 Office Visit 10/23/2008 10:30[place] [address] 715.94 727.03 Office Visit 05/29/2008 9:20a [facility] [id number] 462 Office Visit 04/24/2008 11:30[place] [address] 562.12 401.1 780.93 680.3 Office Visit 03/30/2008 11:50[place] [address] 680.3 401.1 Office Visit 11/29/2007 10:10[place] [address] 724.2 Office Visit 10/02/2007 2:00[place] [address] 401.1 780.93 053.9 Office Visit 06/07/2007 9:40[place] [address] 053.9 401.1 780.93 Office Visit 04/26/2007 9:30[place] [address] 462 786.2 Office Visit 01/04/2007 9:30[place] [address] 401.1 600.00 272.2 496 784.0 715.00 562.10 780.93 794.31 Office Visit 10/12/2006 1:30[place] [address] 724.2 401.1 Office Visit 10/05/2006 1:15p [place] [address] 724.2 E885.9 Office Visit 07/06/2006 11:00[place] [address] 401.1 562.11 427.89 Office Visit 06/13/2006 9:15a Katina Lorenzo RN [facility] 68763 562.11 Office Visit 01/22/2006 8:20[place] [address] 562.11 569.89 564.00 Office Visit 01/18/2006 8:00a Katina Lorenzo RN [facility] 69758 789.9 Office Visit 01/17/2006 2:45p Katina Lorenzo RN [facility] 57874 787.91 789.9 Office Visit 12/18/2005 8:50[place] [address] 401.1 600.00 272.2 Office Visit 09/18/2005 9:00[place] [address] 401.1 600.00 790.93 V76.44 Office Visit 07/19/2005 3:00[place] [address] 401.1 780.4 Office Visit 06/27/2005 1:30[place] [address] 401.1 Office Visit 06/12/2005 8:50[place] [address] 401.1 272.2 780.79 600.00 496 V76.44 Office Visit 09/07/2004 9:20a Katina Lorenzo RN [facility] 38149 784.0 Office Visit 05/18/2004 2:00[place] [address] 401.1 V76.44 780.4 780.79 365.9 455.3 V03.82 V04.81 600.00 Office Visit 09/11/2003 10:00[place] [address] 600.0 401.1 691.8 455.3 715.00 Office Visit 05/07/2003 1:20p Katina Lorenzo RN [facility] 70918 602.9 692.6 919.5 V04.8 Office Visit 05/05/2003 2:10p Katina oLrenzo, [place] [facility] [employer] 85363 682.6 Office Visit 05/04/2003 2:10p Katina Lorenzo, RN [facility] [employer] 48975 682.6 Office Visit 11/13/2002 2:10p Katina Lorenzo, RN [facility] [employer] 51552 692.9 Office Visit 03/07/2002 11:10a Katina Lorenzo RN [facility] 00625 883.0 Office Visit 12/26/2001 1:50p Katina Lorenzo, RN [facility] 75724 382.00 Office Visit 09/06/2001 11:10[place] [address] Office Visit 07/26/2001 2:40[place] [address] Office Visit 06/14/2001 12:00[place] [address] Office Visit 05/04/2000 3:20[place] [address] V76.44 Plan of Care Future Appointment(s):06/24/2018 10:00 am - Ian Son PA at [id number] - Ian Son PAJ44.9 Chronic obstructive pulmonary disease, unspecifiedComments:?seeing pulmonology still. Will Rx Samples Trelegy. + Severe Obstruction. UPDATE:feeling much better with Trelegy. Recheck PFT today and send Rx to the pharmacy.Follow up:f/u 06/2018 for AWE.I48.2 Chronic atrial fibrillationComments:seeing cardio. cut back on the Pradaxa with bruising in the left upper arm. will resume and f/u with cardiology.I10 Essential (primary) hypertensionComments:stable on medsG47.33 Obstructive sleep apnea (adult) (pediatric)Comments:CPAP usage and feeling more rested. +vivid dreams . seeing pulm.R41.3 Other amnesiaComments:worsening slowly. added Namenda to Aricept. seeing ObdxeezuoW53.10 Unspecified RIGHT bundle-branch blockComments:cupqckX69.0 Benign prostatic hyperplasia without lower urinry tract sympComments:seeing Dr Calderon -- no records yet. recheck amkycH49.9 Vitamin D deficiency, unspecifiedComments:uceaggN53.27 Body mass index (BMI) 27.0-27.9, adult
--- OUTSIDE RECORDS SUMMARY | 2018-04-23 21:09 | XMS REPORT ---
:1930 External Reference #:[id number] Author Organization [employer] Address [address] [place] [address] [place] [address] Phone [phone] Care Team Providers Name Role Phone Scarlet Chopra Primary Care Physician Unavailable Payers Type Date Identification Numbers Payment Provider Subscriber Medicare Primary Effective: Policy Number: Medicare Tomas Calloway 1998 [id number] PayID: [id number] [address] [place] [address] [facility] Part B Policy Number: [id number] [facility] Tomas Calloway PayID: [id number] [address] [place] [address] Problems Date Description Provider Status Onset: 05/21/2014 Atrial fibrillation Robbin Sanz M.D., [facility], Active [facility] Onset: 05/21/2014 Essential hypertension Robbin Sanz M.D., [facility], Active [facility] Onset: 06/04/2014 Difficulty breathing Robbin Sanz M.D., [facility], Active [facility] Onset: 06/24/2014 Dyspnea Robbin Sanz M.D., [facility], Active [facility] Onset: 09/01/2014 Benign essential hypertension Robbin Sanz M.D., [facility], Active [facility] Onset: 11/23/2014 Gastroesophageal reflux disease Jazzy Kaur MD Active Onset: 12/23/2014 Intrinsic asthma without status Jazzy Kaur MD Active asthmaticus Onset: 01/13/2015 Disturbance in sleep behavior Jazzy Kaur MD Active Onset: 05/06/2015 Obstructive sleep apnea syndrome Jazzy Kaur MD Active Onset: 10/25/2015 Chronic atrial fibrillation Robbin Sanz M.D., [facility], Active [facility] Onset: 10/25/2015 Right bundle branch block Robbin Sanz M.D., [facility], Active [facility] Onset: 09/07/2017 Minimal cognitive impairment Porter Murrell M.D. Active Family History Date Family Member(s) Problem(s) Comments General Maternal side w/cancer Father of pneumonia Mother "Near" Alzheimer's Siblings 1 Siblings sister doing well Social History Type Date Description Comments Marital Status Single Lives With Alone Occupation Retired ETOH Use Occasionally consumes alcohol 1-2 drinks a day Smoking Patient has never smoked Recreational Drug Use Denies Drug Use Daily Caffeine Consumes on average 1 cup of regular coffee per day Exercise Type/Frequency Exercises sporadically Allergies, Adverse Reactions, Alerts Date Description Reaction Status Severity Comments 05/21/2014 NKDA active Medications Medication Date Status Form Strength Qnty SIG Indications Ordering Provider Donepezil HCL 06/27 Active Tablets 10mg 1 by mouth every day Diltiazem CD 01/13 Active Caps ER 240mg 90cap 1 tab by 24HR s mouth Stefek, every day M.DSara, [facility], [facility] Pradaxa Active Capsules 150mg 180ca 1 cap by Unknown /0000 ps mouth twice a day On Hold as of 10/26/16 Glucosamine Active Capsules 3-4 caps Unknown Chondroitin / po daily Complex Metamucil Active daily Unknown / Omeprazole Active Capsules DR 20mg 1 by mouth Unknown / every day Tacrolimus Active Ointment as needed Unknown / Memantine HCL Active Tablets 5mg take 2 Unknown /0000 tablets by mouth once daily Ra Vitamin D-3 Active Capsules 2000Unit take 1 Unknown /0000 capsule by mouth once daily Furosemide Active Tablets 20mg 30tab 1/2 tab by Robbin / s mouth qod( Yvon, per M.DSara, 10/25/[address] [facility], cardiology [facility] note) Cpap 00 Active Device for use Unknown /0000 while sleeping Vitamin B12 Active Tablets ER 1000mcg 1 by mouth Unknown /0000 every day Trelegy Ellipta Active Aerosol 100-62.5- 1 puff Unknown / 25mcg/Inh daily Fluticasone 09/17 Hx Suspension 50mcg/Act 2 sprays Unknown each - nostril 04/11 daily as needed Vitamin D 06/28 Hx Capsules 125mg 30cap 1 Tab per Jazzy s week Vincent, - 09/17 Albuterol Sulfate 01/13 Hx Nebulizer (2.5mg/3M 2unit 1 unit J45.20 L) 0.083% s nebl every Vincent, - 6 hours as 09/06 needed Advair HFA 12/23 Hx Aerosol 115-21mcg 24uni 2 puff J45.20 Jazzy /2014 /Act ts twice a Vincent, - day 09/06 Albuterol Sulfate 11/22 Hx Tablets 2mg 2 puffs four times - a day as 01/13 needed Vitamin B12 11/22 Hx Tablets 100mcg 1 by mouth every day - 10/23 Nexium 11/[address] 20mg 1 by mouth every day - 02/16 Metoprolol 06/24 Hx Tablets 50mg 1 by mouth Robbin Tartrate /2013 twice a Stefek, - day M.D., 06/[address] [facility] Metoprolol 06/24 Hx Tablets ER 50mg 180ta 1 by mouth Robbin Succinate ER 24HR bs twice a Stefek, - day M.D., 01/[address] [facility] Metoprolol 07/05 Hx Tablets ER 50mg 135ta 1 tablet Robbin Succinate ER 24HR bs in the Stefek, - morning M.D., 06/[address] [facility] in the [facility] evening Aspirin [address] 325mg 30tab 1/4 tab by Unknown /0000 s mouth - every day 10/23 Valsartan Hx Tablets 160mg 90tab 2 tabs by Unknown /0000 s mouth - every day 09/01 Furosemide 00/ Hx 20mg 1/2 tab po Unknown / daily - 10/23 Centrum Silver 00 Hx Tablets daily Unknown /0000 - 03/14 Phosphatidylserin Hx Capsules 100mg 3 caps Unknown e /0000 occasional - ly 10/15 Cartia XT Hx 1 by mouth Unknown / every day - 10/23 Vitamin D-3 Hx Capsules 1000Unit 2by mouth Unknown /0000 every day - 11/18 Ferrous Sulfate 00 Hx Liquid take one Unknown / tsp PO - daily 03/21 Vitamin C Hx daily Unknown / - 03/14 Ferrous Sulfate 00 Hx Elixir 220([id number]) Unknown /0000 mg/5ML - 09/06 Immunizations CPT Code Status Date Vaccine Lot # [id number] Given 11/23/2014 Fluvirin Im 3Yrs And Older Vital Signs Date Vital Result Comment 04/12/2018 Height 73.5 inches 6'1.50" Weight 207.38 lb Heart Rate 74 /min BP Systolic Sitting 98 mmHg Lue large cuff BP Diastolic Sitting 68 mmHg Lue large cuff Respiratory Rate 18 /min O2 % BldC Oximetry 94 % On Ra BMI (Body Mass Index) 27.0 kg/m2 03/15/2018 Height 73.5 inches 6'1.50" Weight 210.00 lb Heart Rate 88 /min BP Systolic Sitting 120 mmHg BP Diastolic Sitting 62 mmHg Respiratory Rate 16 /min BMI (Body Mass Index) 27.3 kg/m2 11/19/2017 Height 73.5 inches 6'1.50" Weight 212.00 lb w/shoes Heart Rate 82 /min BP Systolic Sitting 122 mmHg lue reg cuff BP Diastolic Sitting 70 mmHg lue reg cuff BP Systolic Standing 118 mmHg lue reg cuff BP Diastolic Standing 70 mmHg lue reg cuff Respiratory Rate 18 /min BMI (Body Mass Index) 27.6 kg/m2 Ejection Fraction 60-655 echo 07/16/2014 09/07/2017 Height 73.5 inches 6'1.50" Weight 220.00 lb Heart Rate 72 /min reg/irreg BP Systolic Sitting 110 mmHg BP Diastolic Sitting 68 mmHg Respiratory Rate 16 /min BMI (Body Mass Index) 28.6 kg/m2 03/22/2017 Height 73 inches 6'1" Weight 220.00 lb Heart Rate 80 /min BP Systolic Sitting 114 mmHg BP Diastolic Sitting 64 mmHg Respiratory Rate 14 /min O2 % BldC Oximetry 97 % BMI (Body Mass Index) 29.0 kg/m2 11/15/2016 Height 73 inches 6'1" Weight 211.00 lb w/ shoes Heart Rate 90 /min irreg BP Systolic Sitting 100 mmHg Rue, reg cuff BP Diastolic Sitting 70 mmHg Rue, reg cuff BP Systolic Standing 110 mmHg Rue BP Diastolic Standing 64 mmHg Rue Respiratory Rate 16 /min BMI (Body Mass Index) 27.8 kg/m2 Ejection Fraction 60-65% as of 07/16/14 echo 09/18/2016 Height 73 inches 6'1" Weight 223.00 lb Heart Rate 65 /min BP Systolic 120 mmHg BP Diastolic 70 mmHg Respiratory Rate 14 /min O2 % BldC Oximetry 96 % BMI (Body Mass Index) 29.4 kg/m2 10/25/2015 Height 73 inches 6'1" Weight 223.00 lb Heart Rate 80 /min 82 BP Systolic Sitting 120 mmHg right arm, reg cuff BP Diastolic Sitting 70 mmHg right arm, reg cuff BP Systolic Standing 132 mmHg right arm, reg cuff BP Diastolic Standing 76 mmHg right arm, reg cuff Respiratory Rate 16 /min BMI (Body Mass Index) 29.4 kg/m2 Ejection Fraction 60-65% 07/16/14 06/28/2015 Height 73 inches 6'1" Heart Rate 83 /min BP Systolic 120 mmHg BP Diastolic 80 mmHg Respiratory Rate 14 /min O2 % BldC Oximetry 96 % 05/06/2015 Heart Rate 91 /min BP Systolic Sitting 136 mmHg BP Diastolic Sitting 74 mmHg Respiratory Rate 22 /min O2 % BldC Oximetry 94 % 05/03/2015 Height 73.5 inches 6'1.50" Weight 220.00 lb Pain Level 0 BMI (Body Mass Index) 28.6 kg/m2 04/05/2015 Height 73.5 inches 6'1.50" Weight 220.00 lb Pain Level 3 BMI (Body Mass Index) 28.6 kg/m2 03/22/2015 Height 73.5 inches 6'1.50" Weight 220.00 lb Pain Level 5 BMI (Body Mass Index) 28.6 kg/m2 02/17/2015 Height 73.5 inches 6'1.50" Weight 220.00 lb Heart Rate 76 /min 80 BP Systolic Sitting 110 mmHg left arm, reg cuff BP Diastolic Sitting 74 mmHg left arm, reg cuff BP Systolic Standing 108 mmHg left arm, reg cuff BP Diastolic Standing 68 mmHg left arm, reg cuff Respiratory Rate 16 /min BMI (Body Mass Index) 28.6 kg/m2 Ejection Fraction 60-65% 07/16/14 01/25/2015 Heart Rate 76 /min 80 BP Systolic Sitting 114 mmHg left arm, reg cuff BP Diastolic Sitting 70 mmHg left arm, reg cuff BP Systolic Standing 102 mmHg left arm, reg cuff BP Diastolic Standing 64 mmHg left arm, reg cuff Respiratory Rate 16 /min 01/13/2015 Heart Rate 74 /min BP Systolic Sitting 130 mmHg BP Diastolic Sitting 64 mmHg Respiratory Rate 20 /min O2 % BldC Oximetry 96 % 12/23/2014 Heart Rate 85 /min BP Systolic Sitting 132 mmHg BP Diastolic Sitting 66 mmHg Respiratory Rate 20 /min O2 % BldC Oximetry 95 % 12/07/2014 Height 73.5 inches 6'1.50" Weight 214.00 lb Pain Level 1 BMI (Body Mass Index) 27.8 kg/m2 11/23/2014 Height 73.5 inches 6'1.50" Weight 220.38 lb Heart Rate 80 /min BP Systolic Sitting 132 mmHg BP Diastolic Sitting 74 mmHg Respiratory Rate 20 /min Body Temperature 98.0 F O2 % BldC Oximetry 94 % BMI (Body Mass Index) 28.7 kg/m2 Neck Circumference in inches 16 10/26/2014 Height 73.5 inches 6'1.50" Weight 218.00 lb Heart Rate 76 /min 82 BP Systolic Sitting 140 mmHg right arm, reg cuff BP Diastolic Sitting 86 mmHg right arm, reg cuff BP Systolic Standing 124 mmHg right arm, reg cuff BP Diastolic Standing 88 mmHg right arm, reg cuff Respiratory Rate 20 /min BMI (Body Mass Index) 28.4 kg/m2 10/07/2014 Height 73.5 inches 6'1.50" Weight 214.00 lb Pain Level 2 BMI (Body Mass Index) 27.8 kg/m2 09/01/2014 Height 73.5 inches 6'1.50" Weight 211.00 lb Heart Rate 72 /min 74 BP Systolic Sitting 120 mmHg right arm, reg cuff BP Diastolic Sitting 84 mmHg right arm, reg cuff BP Systolic Standing 118 mmHg right arm, reg cuff BP Diastolic Standing 84 mmHg right arm, reg cuff Respiratory Rate 20 /min BMI (Body Mass Index) 27.5 kg/m2 08/24/2014 Height 73.5 inches 6'1.50" Weight 214.00 lb BMI (Body Mass Index) 27.8 kg/m2 06/24/2014 Height 73.5 inches 6'1.50" Weight 222.00 lb Heart Rate 80 /min 84 BP Systolic Sitting 124 mmHg left arm, reg cuff BP Diastolic Sitting 80 mmHg left arm, reg cuff BP Systolic Standing 98 mmHg left arm, reg cuff BP Diastolic Standing 74 mmHg left arm, reg cuff Respiratory Rate 20 /min BMI (Body Mass Index) 28.9 kg/m2 06/04/2014 Height 73.5 inches 6'1.50" Weight 223.00 lb Heart Rate 64 /min 80 BP Systolic Sitting 120 mmHg left arm, reg cuff BP Diastolic Sitting 72 mmHg left arm, reg cuff BP Systolic Standing 114 mmHg leftarm, reg cuff BP Diastolic Standing 70 mmHg leftarm, reg cuff Respiratory Rate 16 /min BMI (Body Mass Index) 29.0 kg/m2 05/21/2014 Height 73.5 inches 6'1.50" Weight 220.00 lb Heart Rate 74 /min 78 BP Systolic Sitting 106 mmHg right arm, reg cuff BP Diastolic Sitting 66 mmHg right arm, reg cuff BP Systolic Standing 112 mmHg right arm, reg cuff BP Diastolic Standing 66 mmHg right arm, reg cuff Respiratory Rate 14 /min BMI (Body Mass Index) 28.6 kg/m2 Results Test Date Test Result H/L Range Note Laboratory test 10/24/2016 Packed Cells SEE RESULTS BELO 1 finding <SEE NOTE> Type & Screen 10/24/2016 Patient Blood Type B Positive Antibody Screen NEGATIVE Cell Morphology 10/24/2016 Macrocytosis 1+ Microcytosis 1+ Hypochromasia 3+ Polychromasia 1+ Laboratory test finding 10/24/2016 Troponin-I (TnI) 0.02 ng/mL <0.04 2 Lactic Acid 2.1 mmol/L High 0.5-2.0 3 B-Type Natriuretic Peptide BNP 126 pg/mL High 4 CBC Auto Diff 10/24/2016 White Blood Count 8.1 10^3/uL 3.5-10.8 Red Blood Count 2.30 10^6/uL Low 4.0-5.4 Hemoglobin 5.8 g/dL Low 14.0-18.0 5 Hematocrit 19 % Low 42-52 Mean Corpuscular Volume 82 fL 80-94 Mean Corpuscular Hemoglobin 25 pg Low 27-31 Mean Corpuscular HGB Conc 31 g/dL 31-36 Red Cell Distribution Width 22 % High 10.5-15 Platelet Count 312 10^3/uL 150-450 Mean Platelet Volume 7 um3 Low 7.4-10.4 Abs Neutrophils 6.0 10^3/uL 1.5-7.7 Abs Lymphocytes 1.3 10^3/uL 1.0-4.8 Abs Monocytes 0.7 10^3/uL 0-0.8 Abs Eosinophils 0.1 10^3/uL 0-0.6 Abs Basophils 0 10^3/uL 0-0.2 Abs Nucleated RBC 0.03 10^3/uL Granulocyte % 74.0 % 38-83 Lymphocyte % 16.4 % Low 25-47 Monocyte % 8.1 % 1-9 Eosinophil % 1.2 % 0-6 Basophil % 0.3 % 0-2 Nucleated Red Blood Cells % 0.4 Comp Metabolic Panel 10/24/2016 Sodium 134 mmol/L 133-145 Potassium 3.9 mmol/L 3.5-5.0 Chloride 104 mmol/L 101-111 Co2 Carbon Dioxide 24 mmol/L 22-32 Anion Gap 6 mmol/L 2-11 Glucose 101 mg/dL High 70-100 Blood Urea Nitrogen 17 mg/dL 6-24 Creatinine 1.17 mg/dL 0.67-1.17 BUN/Creatinine Ratio 14.5 8-20 Calcium 8.8 mg/dL 8.6-10.3 Total Protein 6.1 g/dL Low 6.4-8.9 Albumin 3.6 g/dL 3.2-5.2 Globulin 2.5 g/dL 2-4 Albumin/Globulin Ratio 1.4 1-3 Total Bilirubin 0.40 mg/dL 0.2-1.0 Alkaline Phosphatase 54 U/L 34-104 Alt 13 U/L 7-52 Ast 13 U/L 13-39 Egfr Non- 59.0 >60 Egfr 75.8 >60 6 Basic Metabolic Panel 02/16/2015 Potassium 3.8 mmol/L 3.5-5.0 Chloride 103 mmol/L 101-111 Co2 Carbon Dioxide 29 mmol/L 22-32 Glucose 112 mg/dL High 70-100 Blood Urea Nitrogen 8 mg/dL 6-24 Creatinine 1.06 mg/dL 0.67-1.17 BUN/Creatinine Ratio 7.5 Low 8-20 Calcium 9.4 mg/dL 8.6-10.3 Egfr Non- 66.2 >60 Egfr 85.2 >60 7 Sodium 138 mmol/L 133-145 Anion Gap 6 mmol/L 2-11 Laboratory test finding 09/01/2014 B Type Natriuretic Peptide 164 pg/mL 8 Basic Metabolic Panel 09/01/2014 Sodium 136 mmol/L 133-145 Potassium 4.6 mmol/L 3.5-5.0 Chloride 103 mmol/L 101-111 Co2 Carbon Dioxide 30 mmol/L 22-32 Anion Gap 3 mmol/L 2-11 Glucose 89 mg/dL 70-100 Blood Urea Nitrogen 17 mg/dL 6-24 Creatinine 1.20 mg/dL High 0.67-1.17 BUN/Creatinine Ratio 14.2 8-20 Calcium 9.4 mg/dL 8.6-10.3 Egfr Non- 57.5 >60 Egfr 74.0 >60 9 Arterial Blood Gas 07/15/2014 PH Arterial 7.31 Low 7.35-7.45 Pco2 Arterial 47 mmHg High 35-45 Po2 Arterial 52 mmHg Low 80-100 10 O2 Saturation Arterial 91.9 % Low 95-98 Base Excess Arterial -3.0 Low -2.0-2.0 11 Hco3 Arterial 22.3 mmol/L 19-31 1 SEE RESULTS BELOW [id number] BN PC TRANSFUSED 10/25/16 0340 [id number] BP PC TRANSFUSED 10/24/16 2322 [id number] BP PC TRANSFUSED 10/25/16 1937 2 99th percentile=0.04 ng/mL Troponin results at [facility] are not interchangeable. 3 Critical Result LACT:2.1 Called to [id number] at: 21:59:33 by:[id number] Read back by:[id number] [facility] Severe Sepsis and Septic Shock Management Bundle Measure requires all lactic acids initially measuring >2.0 mmol/L be repeated. 4 >100 to <200 pg/mL: likely compensated congestive heart failure (CHF) 200 to 400 pg/mL: likely moderate CHF >400 pg/mL: likely moderate to severe CHF 5 Verbal to [id number] by [id number] at 2152 on 10/24/16. Results read back accurately. 6 Because ethnic data is not always readily available, this report includes an eGFR for both -Americans and non- Americans. The National Kidney Disease Education Program (NKDEP) does not endorse the use of the MDRD equation for patients that are not between the ages of 18 and 70, are , have extremes of body size, muscle mass, or nutritional status, or are non- or non-. According to the National Kidney Foundation, irrespective of diagnosis, the stage of the disease is based on the level of kidney function: Stage Description GFR(mL/min/1.73 m(2)) 1 Kidney damage with normal or decreased GFR 90 2 Kidney damage with mild decrease in GFR 60-89 3 Moderate decrease in GFR 30-59 4 Severe decrease in GFR 15-29 5 Kidney failure <15 (or dialysis) 7 Because ethnic data is not always readily available, this report includes an eGFR for both -Americans and non- Americans. The National Kidney Disease Education Program (NKDEP) does not endorse the use of the MDRD equation for patients that are not between the ages of 18 and 70, are , have extremes of body size, muscle mass, or nutritional status, or are non- or non-. According to the National Kidney Foundation, irrespective of diagnosis, the stage of the disease is based on the level of kidney function: Stage Description GFR(mL/min/1.73 m(2)) 1 Kidney damage with normal or decreased GFR 90 2 Kidney damage with mild decrease in GFR 60-89 3 Moderate decrease in GFR 30-59 4 Severe decrease in GFR 15-29 5 Kidney failure <15 (or dialysis) 8 >100 to <200 pg/mL: likely compensated congestive heart failure (CHF) 200 to 400 pg/mL: likely moderate CHF >400 pg/mL: likely moderate to severe CHF [place] [facility] 9 Because ethnic data is not always readily available, this report includes an eGFR for both -Americans and non- Americans. The National Kidney Disease Education Program (NKDEP) does not endorse the use of the MDRD equation for patients that are not between the ages of 18 and 70, are , have extremes of body size, muscle mass, or nutritional status, or are non- or non-. According to the National Kidney Foundation, irrespective of diagnosis, the stage of the disease is based on the level of kidney function: Stage Description GFR(mL/min/1.73 m(2)) 1 Kidney damage with normal or decreased GFR 90 2 Kidney damage with mild decrease in GFR 60-89 3 Moderate decrease in GFR 30-59 4 Severe decrease in GFR 15-29 5 Kidney failure <15 (or dialysis) 10 Verbal to [id number] by [id number] at 1812 on 07/15/14. Results read back accurately. 11 Reference ranges based on room air. Procedures Date CPT Code Description Status 11/19/2017 57352 EKG Tracing & Interpretation Completed 11/15/2016 50888 EKG Tracing & Interpretation Completed 10/25/2015 02966 EKG Tracing & Interpretation Completed 04/15/2015 05549 Polysomnography Sleep Staging 4+ Parameters Completed 03/22/2015 11878 CLST TRMT Distal Radial FX Completed 01/25/2015 97643 EKG Tracing & Interpretation Completed 12/09/2014 11338 Diffusing Capacity Completed 12/09/2014 77258 Plethysmography Determination Lung Volumes & Per Airway Completed Resist 12/09/2014 17769 Pulmonary Stress Test Simple Completed 10/28/2014 98141 Pulmonary Function><Bronchodil Completed 10/26/2014 96220 EKG Tracing & Interpretation Completed 08/24/2014 42586 Rad Exam; Pelvis Completed 08/24/2014 70494 Rad Exam; Pelvis Completed 08/24/2014 11101 Rad Exam; Hip Unilat Completed 08/24/2014 54385 Rad Exam; Hip Unilat Completed 07/21/2014 83991 Percutaneous TX Of Femoral FX Completed 07/21/2014 48933 Percutaneous TX Of Femoral FX Completed 07/16/2014 53999 ECHO Transthorasic Realtime 2D W Doppler & Color Flow Completed Hosp 07/16/2014 10920 EKG, Interpretation Only Completed 06/16/2014 27897 Treadmill Interp/Report Only Completed 06/16/2014 29595 Stress Test Supervsn W/Out I/R Completed 05/29/2014 84867 ECHO Transthorasic Realtime 2D W Doppler & Color Flow Completed [facility] 05/21/2014 16623 EKG Tracing & Interpretation Completed 09/10/2012 07703 EKG Tracing & Interpretation Completed Encounters Type Date Location Provider CPT E/M Dx Office Visit 04/12/2018 [place] [address] J45.20 10:45a [facility] G47.33 J90 Office Visit 03/15/2018 3:15p [facility] Porter Handy, 32158 G31.84 Services Of [facility] M.D. Office Visit 11/19/2017 11:20a [facility] Robbin Sanz M.D., 06645 I48.2 [facility] AT [facility] I45.10 Office Visit 09/07/2017 1:00p [facility] Wilbertisha Handy, 86861 G31.84 Services [facility] M.D. Office Visit 03/22/2017 9:45a [facility] [address] J45.20 [facility] G47.33 Office Visit 11/15/2016 3:20p [facility] Robbin Sanz M.D., 64053 I48.2 [facility] AT [facility] K92.2 Office Visit 10/26/2016 10:40a [facility], Jose M Michel, 49154 K92.2 Hospitalists Nubia G47.33 D62 Office Visit 10/25/2016 10:40a [facility], Jose M Michel, 27383 K92.2 Hospitalists MMarquis G47.33 D62 Office Visit 10/24/2016 10:39a [facility], Aneudy Contreras M.D. 26628 K92.2 Hospitalists D62 G47.33 Office Visit 09/18/2016 9:00a [facility] [address] J45.20 Services [facility] G47.33 Office Visit 10/25/2015 1:20p [facility] Robbin Sanz M.D., 41524 I48.2 [facility] AT [facility] I45.10 Office Visit 06/28/2015 3:30p [facility] [address] G47.33 Services [facility] J45.20 Office Visit 05/06/2015 10:45a [facility] [address] G47.33 Services [facility] J45.20 Office Visit 02/17/2015 2:40p [facility] Geovany Sanz M.D., 12282 427.31 [facility] AT [facility] Office Visit 01/25/2015 1:45p [facility] [place] [address] 427.31 [facility] AT [facility] Office Visit 01/13/2015 11:30a [place] [address] 493.10 Services [facility] 530.81 780.50 Office Visit 12/23/2014 10:15a [facility] [address] 493.10 Services Of [facility] 786.05 530.81 Office Visit 12/07/2014 11:30a [facility] Of Robert Shoemaker M.D. 23799 V54.15 C.M.A. V67.4 V15.51 Office Visit 11/23/2014 9:45a [facility] [address] 786.09 Services [facility] 530.81 Office Visit 10/26/2014 3:20p [facility] Of Robbin Sanz M.D., 57621 427.31 [facility] AT [facility] 401.1 786.05 Office Visit 09/01/2014 3:20p [facility] Of Robbin Sanz M.D., 12546 427.31 [facility] AT [facility] 401.1 786.05 Office Visit 07/26/2014 10:49a [facility] Azul Osuna, 23112 428.31 Assoc, Hospitalists [facility] 427.31 486 820.8 Office Visit 07/25/2014 10:48a [facility] Osuna, 66470 428.31 Assoc, Hospitalists [place] 427.31 486 820.8 Office Visit 07/24/2014 10:48a [facility] Azul Osuna, 27906 428.31 Assoc, Hospitalists [place] 427.31 486 820.8 Office Visit 07/24/2014 12:44p [facility] [address] 786.05 Services [facility] Office Visit 07/23/2014 12:44p [facility] [address] 786.05 Services Of [facility] Office Visit 07/23/2014 10:47a [facility] Azul Osuna, 72745 428.31 Assoc, Hospitalists [facility] 427.31 820.8 486 Office Visit 07/23/2014 3:15p [facility] Of Raven Rutherford M.D. [address] [facility] 786.05 Office Visit 07/22/2014 10:47a [facility] Azul Abdulhn, 89304 428.31 Assoc, Hospitalists [facility] 427.31 820.8 486 Office Visit 07/22/2014 1:20p [facility] German Marcial, 80590 427.31 [place] 794.31 401.1 Office Visit 07/21/2014 10:47a [facility] Azul Enrrique, 47505 428.31 Assoc, Hospitalists [facility] 427.31 486 820.8 Office Visit 07/20/2014 12:33p [facility] [address] [facility] Office Visit 07/20/2014 1:45p [facility] Robbin Sanz M.D., 90747 427.31 [facility] Office Visit 07/20/2014 10:46a [facility] Azul Hohn, 12584 428.31 Assoc, Hospitalists [place] 427.31 486 820.8 Office Visit 07/19/2014 12:32p [facility] [place] [address] [facility] Office Visit 07/19/2014 1:22p [facility] Harman Anderson, 07174 427.31 Kathleen Delacruz, FAC, [facility] Office Visit 07/19/2014 10:46a [facility] Azul Enrrique, 13129 428.31 Assoc, Hospitalists [facility] 427.31 486 820.8 Office Visit 07/18/2014 12:24p [place] [address] [facility] Office Visit 07/18/2014 1:04p [facility] Harman Anderson, 60833 427.31 Kathleen Delacruz, FAC, [facility] Office Visit 07/18/2014 10:45a [facility],mamta Garrison, [address] 518.81 Hospitalists Nubia 584.9 428.31 820.8 Office Visit 07/17/2014 10:44a [facility] [place], 51427 518.81 Hospitalists Nubia 428.31 584.9 820.8 Office Visit 07/17/2014 10:45a [facility] [place] [address] 518.81 Hospitalists Enmanuel Aburto 584.9 428.31 820.8 Office Visit 07/17/2014 12:24p [place] [address] [facility] Office Visit 07/16/2014 10:44a [facility],mamta [place] [address] 518.81 Hospitalists Enmanuel Aburto 428.31 584.9 820.8 Office Visit 07/16/2014 10:43a [facility],mamta Garrison, 97283 518.81 Hospitalists Nubia 428.31 584.9 820.8 Office Visit 07/16/2014 2:07p [facility] Robbin Sanz M.D., 14661 427.31 [facility] Office Visit 07/16/2014 12:22p [place] [address] [facility] Office Visit 07/16/2014 2:54p [facility] Robbin Sanz M.D., [address] [facility] AT [facility] 458.9 Office Visit 07/15/2014 10:42a [facility], 09784 427.31 Assoc, Hospitalists N.PSara 486 820.8 401.9 Office Visit 07/15/2014 7:00a [facility] Robert Shoemaker M.D. 34170 820.8 [facility] Office Visit 06/24/2014 3:40p [facility] Goevany Sanz M.D., [address] [facility] AT [facility] 786.05 401.9 Office Visit 06/04/2014 2:20p [facility] Geovany aSnz M.D., [address] [facility] AT [facility], [facility] 401.9 786.09 Office Visit 05/21/2014 3:20p [facility] Robbin Sanz M.D., [address] [facility] AT [facility], [facility] 401.9 Office Visit 09/10/2012 12:45p [facility] Robbin Sanz M.D., 62443 401.9 [facility] 427.9 Plan of Care Future Appointment(s):10/14/2018 10:45 am - Jazzy Kaur MD at [facility]03/14/2019 3:00 pm - Porter Murrell M.D. at [facility]04/12/2018 - Jazzy Kaur MDJ45.20 Mild intermittent asthma, uncomplicatedFollow up:6 [id number] Obstructive sleep apnea (adult) (pediatric)J90 Pleural effusion, not elsewhere classified
--- OUTSIDE RECORDS SUMMARY | 2018-04-23 21:09 | XMS REPORT | Continuity of Care Document ---
:1930 Author Organization [facility] Care Team Providers Name Role Phone MUNIRA COFFEY Primary Care Physician Allergies and Intolerances No Known Allergies Medications RxNorm Medication Dose Route Instructions Start End Date Status Date 2418 Cholecalciferol 2000 unit oral orally every day Active 2529144 dabigatran etexilate 150 mg oral orally 2 times per Active 150 MG Oral Capsule day (administer at approximately same time(s) each day) Diltiazem Oral 24 hr 240 mg oral orally every day Active Cap Doxycycline Hyclate 100 mg oral orally 2 times per Active Oral day (5 days) 544401 Furosemide 20 MG 20 mg oral orally every day Active Oral Tablet 123068 Levofloxacin 500 MG 500 mg oral orally every day Active Oral Tablet (5 days) 286013 Memantine 5 mg oral orally 2 times per Active hydrochloride 5 MG day Oral Tablet 7646 Omeprazole 20 mg oral orally every day Active Problems Code Code System Problem Name Start Date End Date Status 21433668 SNOMED-CT Pneumothorax Active Procedures No data in the system Results No data in the system Social History Code Code System Social History Description Dates Observed Observation 232076585 SNOMED CT Current Smoking Unknown if ever Status smoked UNK AdministrativeGender Sex Assigned At Unknown Vital Signs No data in the system Goals Section No data in the system Health Concerns No data in the systemEncounter Diagnosis Date Code Code System Diagnosis Status R04.2 ICD10 HEMOPTYSIS Active Advance Directives PT STATES NO ADVANCE DIRECTIVES Directive Type 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
--- OUTSIDE RECORDS SUMMARY | 2018-04-23 21:09 | XMS REPORT | Continuity of Care Document ---
:1930 Author Organization [facility] Care Team Providers Name Role Phone MUNIRA COFFEY Primary Care Physician Allergies and Intolerances No Known Allergies Medications RxNorm Medication Dose Route Instructions Start End Date Status Date 2418 Cholecalciferol 2000 unit oral orally every day Active 4754607 dabigatran etexilate 150 mg oral orally 2 times per Active 150 MG Oral Capsule day (administer at approximately same time(s) each day) Diltiazem Oral 24 hr 240 mg oral orally every day Active Cap Doxycycline Hyclate 100 mg oral orally 2 times per Active Oral day (5 days) 463817 Furosemide 20 MG 20 mg oral orally every day Active Oral Tablet 004405 Levofloxacin 500 MG 500 mg oral orally every day Active Oral Tablet (5 days) 668396 Memantine 5 mg oral orally 2 times per Active hydrochloride 5 MG day Oral Tablet 7646 Omeprazole 20 mg oral orally every day Active Problems Code Code System Problem Name Start Date End Date Status 83573960 SNOMED-CT Pneumothorax Active Procedures No data in the system Results No data in the system Social History Code Code System Social History Description Dates Observed Observation 112603620 SNOMED CT Current Smoking Unknown if ever Status smoked UNK AdministrativeGender Sex Assigned At Unknown Vital Signs No data in the system Goals Section No data in the system Health Concerns No data in the systemEncounter Diagnosis Date Code Code System Diagnosis Status R07.89 ICD10 OTHER CHEST PAIN Active Advance Directives PT STATES NO ADVANCE DIRECTIVES Directive 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
--- NOTE | 2018-04-23 21:17 | ED ---
Altered Mental Status - HPI Summary HPI Summary: Pt is an 87 y/o male BIBA who presents to the ED c/o AMS. He was SOB and was given fluids and oxygen by EMS. Pt states he feels fine now, and denies any current SOB or CP. He was unable to recall events, but now is alert and oriented. Pt states he was sitting on his porch and next thing he knows the ambulance showed up. Pt remembers going to his neighbors house to drink scotch , and states he had a fair amount, but just enough. His neighbors called EMS due to his AMS. PMHx atrial arrhythmia, GERD, HTN, CHF, and arthritis. - History Of Current Complaint Chief Complaint: EDAltMentalStatus Stated Complaint: CARDIAC ISSUES Time Seen by Provider: 04/23/18 20:58 Hx Obtained From: Patient Onset/Duration: Resolved Severity Currently: None Character: Confusion Aggravating Factor(s): Other - Drinking scotch Alleviating Factor(s): Oxygen, Other - Fluids Associated Signs And Symptoms: Positive: Negative - Allergies/Home Medications Allergies/Adverse Reactions: Allergies Allergy/AdvReac Type Severity Reaction Status Date / Time No Known Allergies Allergy Verified 07/15/14 15:44 PMH/Surg Hx/FS Hx/Imm Hx Endocrine/Hematology History: Denies: Hx Diabetes Cardiovascular History: Reports: Hx Atrial Fibrillation, Hx Congestive Heart Failure, Hx Hypertension Denies: Hx Angina Respiratory History: Reports: Hx Sleep Apnea Denies: Hx Asthma, Hx Chronic Obstructive Pulmonary Disease (COPD) Comment Only: Other Respiratory Problems/Disorders - pt states wheezes occasionally GI History: Reports: Hx Diverticulosis, Hx Gastroesophageal Reflux Disease Musculoskeletal History: Reports: Hx Arthritis Sensory History: Reports: Hx Contacts or Glasses Opthamlomology History: Reports: Hx Contacts or Glasses - Surgical History Surgery Procedure, Year, and Place: Right hip (2012), Tonsilectomy Infectious Disease History: No Infectious Disease History: Reports: Hx Hepatitis - Hepatitis B Denies: Traveled Outside the [place] in Last 30 Days - Family History Known Family History: Negative: Cardiac Disease, Hypertension, Diabetes - Social History Alcohol Use: Daily Alcohol Amount: 3 MIXED DRINKS PER DAY Hx Substance Use: No Substance Use Type: Reports: None Hx Tobacco Use: No Smoking Status (MU): Never Smoked Tobacco Review of Systems Negative: Chest Pain Positive: Shortness Of Breath Positive: Other - Confusion All Other Systems Reviewed And Are Negative: Yes Physical Exam - Summary Physical Exam Summary: Appearance: Well appearing, no pain distress Skin: warm, dry, reflects adequate perfusion Head/face: normal Eyes: EOMI, IRASEMA ENT: mucous membranes moist Neck: supple, non-tender Respiratory: CTA, breath sounds present Cardiovascular: irregularly irregular rhythm, pulses symmetrical, 2+ LE pitting edema Abdomen: non-tender, soft Bowel Sounds: present Musculoskeletal: normal, strength/ROM intact Neuro: normal, sensory motor intact, A&Ox3 GCS: 15 Triage Information Reviewed: Yes Vital Signs On Initial Exam: Initial Vitals Temp Pulse Resp BP Pulse Ox 98 F 67 22 112/65 100 04/23/18 20:57 04/23/18 20:57 04/23/18 20:57 04/23/18 20:57 04/23/18 20:57 Vital Signs Reviewed: Yes Diagnostics - Vital Signs Vital Signs Temp Pulse Resp BP Pulse Ox 04/23/18 20:57 98 F 67 22 112/65 100 - Laboratory Result Diagrams: 04/23/18 21:23 04/23/18 21:23 Lab Statement: Any lab studies that have been ordered have been reviewed, and results considered in the medical decision making process. - CT Brain CT CT Interpretation: No Acute Changes - 1. No acute intracranial abnormality. 2. Age-related atrophy and mild chronic small vessel ischemic disease. ED physician reviewed radiology report. CT Interpretation Completed By: Radiologist - EKG 21:16 Cardiac Rate: NL - 64 bpm EKG Rhythm: Atrial Fibrillation ST Segment: Non-Specific EKG Interpretation: RBBB, LAD Altered Mental Statu Course/Dx - Course Course Of Treatment: Patient presents alert and oriented and tells us that he isn't drinking Scotch prior to driving over to see his friend. He is found to the altered at his friend's house. EMS was called and found him to have normal blood sugar. By the time he arrived here he was alert and oriented and normally conversant. Blood work, head CT etc. all have been negative. His alcohol however was 181 here. He likely was over 200 when he was exhibiting symptoms. He also was driving prior to this. Patient was instructed never to drink and drive and to drink his Scotch in moderation. He is discharged in good condition. - Diagnoses Differential Diagnosis/HQI/PQRI: Intoxication, Intracranial Bleed, Medication Reaction, Sepsis, Seizure Provider Diagnoses: Alcohol intoxication, Delirium Discharge - Sign-Out/Discharge Documenting (check all that apply): Patient Departure - Discharge - Discharge Plan Condition: Improved Disposition: HOME Patient Education Materials: Alcohol Intoxication (ED) Referrals: Scarlet Chopra MD [Primary Care Provider] - Additional Instructions: Never drive after drinking. Only drink alcohol in moderation. Return if worse , new symptoms or other concerns as discussed. - Billing Disposition and Condition Condition: IMPROVED Disposition: Home - Attestation Statements Document Initiated by Scribe: Yes Documenting Scribe: Mya Wright Provider For Whom Scribe is Documenting (Include Credential): Reza Bender MD Scribe Attestation: Mya Cameron, scribed for Reza Bender MD on 04/24/18 at 0046. Scribe Documentation Reviewed: Yes Provider Attestation: The documentation as recorded by the Mya powell accurately reflects the service I personally performed and the decisions made by me, Reza Bender MD
[2018-04-23 21:32] LABS: ABS Basophils 0.1 10^3/ul (0-0.2); ABS Eosinophils 0.2 10^3/ul (0-0.6); ABS Lymphocytes 2.2 10^3/ul (1.0-4.8); ABS Monocytes 0.6 10^3/ul (0-0.8); ABS Neutrophils 4.6 10^3/ul (1.5-7.7); ABS Nucleated RBC 0 10^3/ul; Eosinophil % 2.8 % (0-6); Hematocrit 44 % (42-52); Hemoglobin 15.1 g/dl (14.0-18.0); Lymphocyte % 28.8 % (25-47); Mean Corpuscular HGB Conc 34 g/dl (31-36); Mean Corpuscular Hemoglobin 36 pg (27-31); Mean Corpuscular Volume 105 fL (80-94); Mean Platelet Volume 7.1 um3 (7.4-10.4); Nucleated Red Blood Cells % 0.1; Platelet Count 219 10^3/ul (150-450); Red Blood Count 4.23 10^6/ul (4.00-5.40); Red Cell Distribution Width 15 % (10.5-15); White Blood Count 7.8 10^3/ul (3.5-10.8)
[2018-04-23 21:54] LABS: EGFR Non-African American 74.6 (>60)
--- NOTE | 2018-04-23 22:20 | RAD ---
EXAM: CT Head Without Intravenous Contrast CLINICAL HISTORY: 87 years old, male; Signs and symptoms; Altered mental status/memory loss; Confusion or disorientation TECHNIQUE: Axial computed tomography images of the head/brain without intravenous contrast. All CT scans at this facility use at least one of these dose optimization techniques: automated exposure control; mA and/or kV adjustment per patient size (includes targeted exams where dose is matched to clinical indication); or iterative reconstruction. COMPARISON: No relevant prior studies available. FINDINGS: Brain: Mild periventricular and subcortical low attenuation without adjacent mass effect. Ventricles: The ventricles and extraventricular CSF spaces are widened although symmetrically positioned along the midline. Bones/joints: No acute fracture. No suspicious osseous lesions. Soft tissues: Normal. Vasculature: The vasculature demonstrates diffuse mild atherosclerotic calcification. Sinuses: Normal as visualized. Mastoid air cells: Normal as visualized. No mastoid effusion. IMPRESSION: 1. No acute intracranial abnormality. 2. Age-related atrophy and mild chronic small vessel ischemic disease.
[2018-04-23 23:35] VITALS: BP 132/86
== END 2018-04-23 23:37 | disposition home or self-care (01) ==
LOC: ED 20:55
DX: F10.121 Alcohol abuse with intoxication delirium (principal); R06.02 Shortness of breath; I48.91 Unspecified atrial fibrillation
CPT/HCPCS: 36415; 70450; 80048; 80320; 83880; 84484; 85025; 93005; 99283; G0480